=== PATIENT | female | born 1965 | race Two or more races ===

== ENCOUNTER 2022-09-08 13:39 | Outpatient (REF) | payer MEDICAID, OTHER, SELFPAY ==
--- NOTE | ~2022-09-08 | XR_ITS ---
EXAMINATION: XR HAND, RIGHT CLINICAL INFORMATION: Pain in right hand. COMPARISON: None TECHNIQUE: PA, lateral, and oblique views of the right hand. FINDINGS: There is loss of PIP and DIP joint space. No periarticular spurring or loose body seen. There is diffuse osteopenia. The soft tissues are normal. XR/XR hand RT min 3V IMPRESSION: Mild degenerative changes PIP and DIP joints. No visible acute fracture or dislocation seen.
== END 2022-09-08 13:40 | disposition home or self-care (01) ==
LOC: HO.XRAY 13:39
PROVIDERS: PCP Internal Medicine; Visit Provider Internal Medicine
DX: M79.641 Pain in right hand (principal)
CPT/HCPCS: 73130

== ENCOUNTER 2022-09-20 14:26 | Outpatient (REF) | payer MEDICAID, OTHER, SELFPAY ==
--- NOTE | ~2022-09-20 | MM_ITS ---
EXAMINATION: MM SCREENING DIGITAL BREAST TOMOSYNTHESIS, BILATERAL CLINICAL INFORMATION: Screening. Asymptomatic. The lifetime risk of breast cancer based on the Tyrer-Cuzick Model is 9%. COMPARISON: Mammography: 06/10/2015 TECHNIQUE: Digital breast tomosynthesis is performed in both the craniocaudal and mediolateral oblique views along with computer-aided detection (CAD). Synthesized 2D images are generated from the tomosynthesis. FINDINGS: There are scattered areas of fibroglandular density (ACR BI-RADS breast composition Category b). Parenchymal pattern pattern is similar to prior exam. No interval mass or architectural abnormality. No abnormal calcifications. The axilla and skin contours unremarkable. MM/MM tomosynthesis screening BI IMPRESSION: No mammographic evidence of malignancy. ASSESSMENT: BI-RADS 1: Negative RECOMMENDATION: Routine annual mammography screening. This patient's information was entered into a reminder system with a target due date for their next mammogram.
== END 2022-09-20 14:27 | disposition home or self-care (01) ==
LOC: HO.MAMMO 14:26
PROVIDERS: PCP Internal Medicine; Visit Provider Internal Medicine
DX: Z12.31 Encounter for screening mammogram for malignant neoplasm of breast (principal)
CPT/HCPCS: 77063; 77067

== ENCOUNTER 2024-01-10 15:13 | Outpatient (REF) | payer MEDICAID, OTHER, SELFPAY ==
[2024-01-10 15:59] LABS: MANUAL DIFF FLAG NO
[2024-01-10 16:08] LABS: Basophils Percent Auto 0.4 % (0-2); Eosinophils Absolute Auto 0.2 X10*3/uL (0.0-0.4); Hematocrit 36.6 % (37.0-47.0); Hemoglobin 12.3 g/dl (12.0-16.0); Imm Gran Abs Auto 0.02 X10*3/uL (0.00-0.03); Imm Gran Pct Auto 0.3 % (0.0-0.4); Lymphocytes Absolute Auto 3.5 X10*3/uL (1.2-4.9); Lymphocytes Percent Auto 45.6 % (20-40); Mean Corpuscular HGB Conc 33.6 g/dl (31.0-35.0); Mean Corpuscular Hemoglobin 29.6 pg (27.0-33.0); Mean Platelet Volume 9.1 fL (9.4-12.3); Monocytes Absolute Auto 0.5 X10*3/uL (0.1-1.2); Monocytes Percent Auto 6.4 % (2-11); Neutrophils Absolute Auto 3.5 x10*3/uL (2.0-8.3); Neutrophils Percent Auto 45.3 % (45-73); Platelet Count 338 X10*3/uL (160-400); Red Blood Count 4.16 X10*6/uL (4.20-5.50); White Blood Count 7.6 X10*3/uL (4.8-10.8)
[2024-01-10 16:53] LABS: Erythrocyte Sedimentation Rate 16 MM/HR (0-20)
[2024-01-10 17:52] LABS: Alanine Aminotransferase 17 U/L (0-31); Albumin Level 3.8 g/dL (3.5-5.0); Aspartate Amino Transferase 19 U/L (5-31); C Reactive Protein 0.17 mg/dL (< or = 0.50); Estimated Glomerular Filt Rate > 60
== END 2024-01-10 15:14 | disposition home or self-care (01) ==
LOC: HO.HHCL 15:13
PROVIDERS: Visit Provider Internal Medicine Rheumatology
DX: M06.00 Rheumatoid arthritis without rheumatoid factor, unspecified site (principal); Z79.899 Other long term (current) drug therapy
CPT/HCPCS: 36415; 82040; 82565; 84450; 84460; 85025; 85652; 86140

== ENCOUNTER 2024-05-02 15:07 | Outpatient (REF) | payer MEDICAID, OTHER, SELFPAY ==
[2024-05-02 16:01] LABS: MANUAL DIFF FLAG NO
[2024-05-02 16:13] LABS: Basophils Percent Auto 0.5 % (0-2); Eosinophils Absolute Auto 0.2 X10*3/uL (0.0-0.4); Eosinophils Percent Auto 1.8 % (0-4); Hematocrit 38.1 % (37.0-47.0); Hemoglobin 12.6 g/dl (12.0-16.0); Imm Gran Abs Auto 0.01 X10*3/uL (0.00-0.03); Imm Gran Pct Auto 0.1 % (0.0-0.4); Lymphocytes Absolute Auto 3.6 X10*3/uL (1.2-4.9); Mean Corpuscular HGB Conc 33.1 g/dl (31.0-35.0); Mean Corpuscular Hemoglobin 29.3 pg (27.0-33.0); Mean Corpuscular Volume 88.6 fL (80.0-98.0); Mean Platelet Volume 9.2 fL (9.4-12.3); Monocytes Absolute Auto 0.5 X10*3/uL (0.1-1.2); Neutrophils Absolute Auto 3.9 x10*3/uL (2.0-8.3); Neutrophils Percent Auto 47.6 % (45-73); Platelet Count 361 X10*3/uL (160-400); Red Cell Distribution Width 14.6 % (11.0-16.0); White Blood Count 8.1 X10*3/uL (4.8-10.8)
[2024-05-02 16:30] LABS: Alanine Aminotransferase 12 U/L (0-31); Albumin Level 3.9 g/dL (3.5-5.0); Alkaline Phosphatase 78 U/L (39-117); Anion Gap 9 (12-20); Aspartate Amino Transferase 18 U/L (5-31); Bilirubin Direct < 0.2 mg/dL (0.0-0.5); Bilirubin Total 0.2 mg/dL (0.0-1.0); Blood Urea Nitrogen 10 mg/dL (9-16); Calcium 9.9 mg/dL (8.4-10.2); Carbon Dioxide 32 mmol/L (22-29); Chloride 103 mmol/L (96-108); Cholesterol 228 mg/dL (<200); Estimated Glomerular Filt Rate > 60; Glucose Random 88 mg/dL (60-115); HDL Cholesterol 59 mg/dL (>40); LDL Cholesterol Calculated 146 mg/dL (<100); Potassium 3.4 mmol/L (3.3-5.1); Sodium 141 mmol/L (135-145); Total Protein 7.1 g/dL (6.5-8.0); Triglycerides 119 mg/dL (<150)
[2024-05-02 16:35] LABS: Estimated Average Glucose 117 mg/dL; Hemoglobin A1c % 5.7 % (<6.0)
== END 2024-05-02 15:08 | disposition home or self-care (01) ==
LOC: HO.HHCL 15:07
PROVIDERS: Visit Provider Internal Medicine
DX: I10 Essential (primary) hypertension (principal)
CPT/HCPCS: 36415; 80048; 80061; 80076; 83036; 85025

== ENCOUNTER 2025-03-14 17:44 | Emergency (ER) | payer MEDICAID, OTHER, SELFPAY ==
--- NOTE | 2025-03-14 17:54 | ED.GENADULT ---
HPI - General Adult General Chief complaint: Dizziness Stated complaint: high blood pressure/dizzy/vomiting Time Seen by Provider: 03/14/25 18:33 Source: patient and cyber reverse engineer (samoan) Mode of arrival: ambulatory Limitations: language barrier (samoan) History of Present Illness ED Provider: SOBIA DUKE PA-C HPI narrative: 59 year old Citizen [place] speaking female with pmhx significant for lupus, arthritis, and HTN presents to the ED today for evaluation of nausea and dizziness since yesterday. She states dizziness has been intermittent since yesterday. Exacerbated with head movements. She states she cannot describe her dizziness but states she does not feel light headed. She denies any vision changes. She reports initially feeling nauseous yesterday. At that time, she took her blood pressure and states it was 179 over 90s. She reports compliance with her blood pressure medications, amlodipine and hydralazine. She denies any recent changes to these medications. She also reports 3 episodes of vomiting yesterday. No episodes of vomiting today. Denies any associated headache, vision changes, chest pain, shortness of breath or palpitations. She is not on any anticoagulation. No VTE. Denies any difficulty ambulating. Related Data Previous Rx's ?Medication ?Instructions ?Recorded meclizine 25 mg tablet 25 mg PO BID PRN dizziness #20 tabs 03/14/25 Allergies Allergy/AdvReac Type Severity Reaction Status Date / Time Penicillins Allergy Mild UNKNOWN Verified 03/14/25 17:57 Review of Systems Review of Systems: Yes all other systems are reviewed and are negative PMFSH Past Medical History Attestation statement: The following information was validated with the patient. Source: old records reviewed and nursing notes reviewed Social History Social History Alcohol intake: never Smoked in Last 30 Days: No Use of substances other than those prescribed or required for medical reasons: No Advance Directives: No Advance Directives Information Provided: No Do you have a plan to hurt others: No Plan Patient : No Physical Exam ED Vital Signs: Vital Signs - 24 hr 03/14/25 17:57 03/14/25 19:13 03/14/25 19:14 Temperature 98.1 F Pulse Rate 85 66 76 Respiratory Rate 16 Blood Pressure 123/73 136/72 118/77 Pulse Oximetry 95 Oxygen Delivery Method Room Air 03/14/25 19:14 03/14/25 20:06 Temperature Pulse Rate 75 75 Respiratory Rate 18 Blood Pressure 124/77 124/77 Pulse Oximetry 95 Oxygen Delivery Method Room Air BMI result Body Mass Index 27.7 vital signs stable General: Well appearing, in no acute distress. Skin: Warm, dry, intact. No rashes or lesions. Head: Normocephalic, atraumatic. EENT: Hearing is intact b/l. Conjunctiva clear. Sclera is anicteric. PERRLA. EOM intact. Moist mucous membranes.? Neck: Supple without LAD. FROM. Trachea midline.? Cardiac: Chest wall symmetric. RRR. No MRG. No JVD. Lungs: Normal respiratory effort without accessory muscle use. CTA bilaterally Abdomen: Soft, non-tender, non-distended. No rebound tenderness or guarding. Positive BS x4. Ext: Upper and lower extremities atraumatic, without tenderness, deformity, swelling or erythema Neuro: AOx3. Normal speech. NIH 0. Mild fatigable nystagmus. No slurred speech, facial droop or pronator drift. Normal [id number], [id number]. Ambulating with steady gait. Psych: Appropriate mood and affect. Responds appropriately to questions. Course Course Course Narrative: This is an RME: Additional HPI, ROS, PE not included below will be deferred to primary provider. RME assessment and note performed by: Vicky León PA-C This is a 59-year-old samoan speaking female, with a hx of lupus, arthritis, and HTN, who presents emergency department with concerns for dizziness and vomiting. Reports dizziness occurs with speaking. She is neurologically intact, no focal deficits seen in triage. Reports her BP was elevated at 179/90s yesterday. Current BP in triage 123/73. She is not on anticoagulants. Plan: Labs, EKG, viral swabs, further ER eval needed. Reevaluation(s) Reevaluation #1: 1949 -- CBC without leukocytosis or left shift. No anemia. H&H stable. Chemistry showing hypokalemia to 3.1, magnesium WNL at 2.1. EKG shows normal sinus rhythm. No T-wave abnormalities. P.o. supplementation ordered. No MADELYN. Liver function at baseline. Troponin undetectable. Given onset of symptoms and timing to ED, no need to repeat for delta. Negative COVID, flu, RSV. Urinalysis pending. Orthostatic vital signs are negative. > trialing IV fluids and meclizine. Plan for re-evaluation. Imaging not warranted at this time. 2036 -- urine without infection. On re-evaluation of patient, she reports significant improvement in symptoms after receiving meclizine and IV fluids. She was well-appearing. States she would like to go home, she was hungry. I discussed all workup results with patient. I have suspicion for vertigo type dizziness. Her exam is completely nonfocal and cerebellum is intact. I do not have concern for cerebellar stroke at this time and do not feel as though imaging is warranted. Will send meclizine to pharmacy to take on an as-needed basis for dizziness. Advised to monitor blood pressure at home and to follow up with her primary care provider regarding this. Her blood pressure has remained stable while in the ED. ambulating with steady gait. She was tolerating p.o.. Patient has remained stable throughout ED visit today. Discussed worrisome signs and symptoms and when to return to the ED. All questions answered at this time. Patient is agreeable with disposition and stable for discharge. Medications Administered Discontinued Medications Generic Name Dose Route Start Last Admin Trade Name Freq PRN Reason Stop Dose Admin Sodium Chloride 1,000 mls @ 999 mls/hr 03/14/25 19:15 03/14/25 19:29 Ns IV 03/14/25 20:15 999 mls/hr .Q1H1M KATY Administration Meclizine HCl 25 mg 03/14/25 19:06 03/14/25 19:20 Meclizine Hcl 25 Mg Tablet PO 03/14/25 19:07 25 mg ONCE ONE Administration Potassium Chloride 40 meq 03/14/25 19:08 03/14/25 19:19 Potassium Chloride Packet 20 Meq Packet PO 03/14/25 19:09 40 meq ONCE ONE Administration Medical Decision Making Medical Decision Making MDM Narrative: 59 year old Citizen [place] speaking female with pmhx significant for lupus, arthritis, and HTN presents to the ED today for evaluation of nausea and dizziness since yesterday. Vital signs stable. BP WNL. She is nontoxic appearing in no acute distress. Ambulating with slow but steady gait. Exam nonfocal, cerebellum intact. Noted fatigable nystagmus. Differential diagnoses includes: viral syndrome, anemia, electrolyte abnormality, hypoglycemia, orthostatic hypotension, dehydration, medication side effect, BPPV vs labrynthitis. No red flag features for central vertigo to include gradual onset, vertical/bidirectional or nonfatigable nystagmus, focal neurologic findings on exam (including inability to ambulate). Presentation not consistent with an acute CONTACT LENS TECHNICIAN infection, vertebral basilar artery insufficiency, cerebellar hemorrhage or infarction,?intracranial mass or bleed, temporal lobe epilepsy,?MS, trauma, complex migraine headache. I have also considered ACS, arrhythmi, UTI. Plan: labs, ekg, viral swabs, UA, ortho vitals, trial of IVF +meclizine, supportive care, serial reassessment Differential Diagnosis Differential Diagnoses: The differential diagnosis associated with the presentation includes as above. Admission/Observation not indicated. Lab Data MDM Lab Attestation statement: I reviewed the patient's lab results. as above. 03/14/25 18:21 03/14/25 18:21 Labs: Lab Results 03/14/25 03/14/25 Range/Units 18:21 20:03 WBC 8.6 (4.8-10.8) X10*3/uL RBC 4.21 (4.20-5.50) X10*6/uL Hgb 12.6 (12.0-16.0) g/dl Hct 36.5 L (37.0-47.0) % MCV 86.7 (80.0-98.0) fL MCH 29.9 (27.0-33.0) pg MCHC 34.5 (31.0-35.0) g/dl RDW 14.0 (11.0-16.0) % Plt Count 312 (160-400) X10*3/uL MPV 8.7 L (9.4-12.3) fL Immature Gran % (Auto) 0.1 (0.0-0.4) % Neut % (Auto) 54.1 (45-73) % Lymph % (Auto) 38.4 (20-40) % [place] % (Auto) 6.5 (2-11) % Eos % (Auto) 0.6 (0-4) % Baso % (Auto) 0.3 (0-2) % Lymph # (Auto) 3.3 (1.2-4.9) X10*3/uL [place] # (Auto) 0.6 (0.1-1.2) X10*3/uL Eos # (Auto) 0.1 (0.0-0.4) X10*3/uL Baso # (Auto) 0.0 (0.0-0.2) X10*3/uL Abs Immat Gran (auto) 0.01 (0.00-0.03) X10*3/uL Absolute Neuts (auto) 4.7 (2.0-8.3) x10*3/uL Absolute Nucleated RBC 0.000 (0.0-0.012) X10*3/uL Nucleated RBC % (auto) 0.0 (0.0-0.2) /100WBC Sodium 138 (135-145) mmol/L Potassium 3.1 L (3.3-5.1) mmol/L Chloride 103 (96-108) mmol/L Carbon Dioxide 26 (22-29) mmol/L Anion Gap 12 (12-20) BUN 18 H (9-16) mg/dL Creatinine 0.66 (0.5-1.4) mg/dL Estim Creat Clear Calc 82.3 Estimated GFR > 60 Random Glucose 95 (60-115) mg/dL Calcium 9.1 D (8.4-10.2) mg/dL Magnesium 2.1 (1.6-2.6) mg/dL Total Bilirubin 0.4 (0.0-1.0) mg/dL Direct Bilirubin 0.1 (0.0-0.5) mg/dL AST 24 (5-31) U/L ALT 14 (0-31) U/L Alkaline Phosphatase 61 (39-117) U/L Troponin I High Sens < 2.7 (<3.5-17.0) ng/L Total Protein 6.5 (6.5-8.0) g/dL Albumin 3.7 (3.5-5.0) g/dL Urine Color Yellow Urine Appearance Clear Urine pH 6.5 (5.0-9.0) Ur Specific [place] 1.010 (1.005-1.025) Urine Protein Negative (Neg-Trace) mg/dL Urine Glucose (UA) Negative (Negative) mg/dL Urine Ketones Negative (Negative) mg/dL Urine Blood Negative (Negative) Urine Nitrite Negative (Negative) Ur Leukocyte Esterase Small (1+) H (Negative) Urine RBC 0-2 (0-2) /HPF Urine WBC 0-5 (0-5) /HPF Ur Squamous Epith Cells 0-2 (0-2) /HPF Urine Bacteria None Seen (None Seen) Hyaline Casts 0-2 (0-2) /LPF Influenza Type A (PCR) NEGATIVE (Negative) Influenza Type B (PCR) NEGATIVE (Negative) RSV RNA Qual (PCR) NEGATIVE (Negative) SARS-CoV-2 RNA (RT-PCR) NEGATIVE (Negative) Independent Interpretation I performed an independent interpretation of an: EKG Interpretation: EKG showing normal sinus rhythm, rate of 68 beats per minute, QT 410, QTC 435, no acute ischemic changes or ST elevations Prescription Management I considered prescription management with: Other (Meclizine) Social Determinants Patient?s care significantly limited by Social Determinants of Health including: Other Social Determinant of Health Critical Care Time Critical Care Time Critical Care Time: No Discharge Plan Discharge Clinical Impression: Dizziness Patient Disposition: Home, Self-Care Instructions: Vertigo (ED), Dizziness (ED) Additional Instructions: You were evaluated in the ED today for nausea and dizziness. Your blood work showed low level of potassium. This was repleted while in the ED today. Your blood work was otherwise reassuring. You were blood pressure is normal. Your EKG is normal. Your symptoms improved with medication (meclizine) and IV fluids. Your exam is reassuring. I have suspicion that you are experiencing vertigo. See home care instructions. I am sending meclizine to your pharmacy. You may take this 2-3 times daily as needed for dizziness. I advise you to follow up with your primary care provider. Continue monitoring your blood pressure at home, every other day. Return with any new or worsening symptoms. In the case of an emergency call 911. Prescriptions: New meclizine 25 mg tablet 25 mg PO BID PRN (Reason: dizziness) Qty: 20 0RF Referrals: Constanza Barahona MD [Primary Care Provider] - Print Language: Citizen [place]
[2025-03-14 17:57] VITALS: BP 123/73; PULSE 85; RESP 16; TEMP 36.7; O2SAT 95; BMI 27.7
--- NOTE | 2025-03-14 18:07 | ECG_ITS ---
Test Reason : DIZZINESS Blood Pressure : */* mmHG Vent. Rate : 68 BPM Atrial Rate : 68 BPM P-R Int : 160 ms QRS Dur : 92 ms QT Int : 410 ms P-R-T Axes : 49 -2 41 degrees QTcB Int : 435 ms Normal sinus rhythm Normal ECG When compared with ECG of 22-Apr-2018 12:21, No significant change was found Referred By: Vicky León Electronically Signed By: SCOTTY MENENDEZ MD
[2025-03-14 18:25] LABS: MANUAL DIFF FLAG NO
[2025-03-14 18:26] LABS: Basophils Percent Auto 0.3 % (0-2); Eosinophils Absolute Auto 0.1 X10*3/uL (0.0-0.4); Eosinophils Percent Auto 0.6 % (0-4); Hematocrit 36.5 % (37.0-47.0); Hemoglobin 12.6 g/dl (12.0-16.0); Imm Gran Abs Auto 0.01 X10*3/uL (0.00-0.03); Imm Gran Pct Auto 0.1 % (0.0-0.4); Lymphocytes Absolute Auto 3.3 X10*3/uL (1.2-4.9); Lymphocytes Percent Auto 38.4 % (20-40); Mean Corpuscular HGB Conc 34.5 g/dl (31.0-35.0); Mean Corpuscular Hemoglobin 29.9 pg (27.0-33.0); Mean Corpuscular Volume 86.7 fL (80.0-98.0); Mean Platelet Volume 8.7 fL (9.4-12.3); Monocytes Absolute Auto 0.6 X10*3/uL (0.1-1.2); Monocytes Percent Auto 6.5 % (2-11); Neutrophils Absolute Auto 4.7 x10*3/uL (2.0-8.3); Neutrophils Percent Auto 54.1 % (45-73); Platelet Count 312 X10*3/uL (160-400); Red Blood Count 4.21 X10*6/uL (4.20-5.50); White Blood Count 8.6 X10*3/uL (4.8-10.8)
--- OUTSIDE RECORDS SUMMARY | 2025-03-14 18:36 | XMS_ITS | Clinical Summary ---
Author Organization [facility] Address [address] [place] [address] Care Team Providers Care Cooking Teacher Name Role Phone Constanza Barahona MD Primary Care Provider Allergies No known active allergies Medications amLODIPine (NORVASC) 10 mg tablet 10 mg. Active acetaminophen (TYLENOL) 500 mg tablet Take 500 mg by mouth every 6 hours as needed for pain. Active omeprazole (PriLOSEC) 20 mg capsule Take 20 mg by mouth daily. Active aspirin 81 mg EC tablet Take 81 mg by mouth once a day. 08/31/2022 Active ibuprofen (MOTRIN) 600 mg tablet Take 600 mg by mouth 2 times a day. 08/31/2022 Active Active Problems Problem Noted Date Diagnosed Date Long-term use of Plaquenil 06/06/2021 Age-related nuclear cataract of both eyes 2020 Refractive error 06/06/2021 H/O pain when walking 02/21/2016 Bunion, left 02/21/2016 GERD (gastroesophageal reflux disease) 5 Chronic idiopathic constipation 10/28/2015 Overweight (BMI 25.0-29.9) 10/28/2015 Acquired hallux rigidus of right foot 10/28/2015 Bilateral foot pain 05/18/2015 Resolved Problems Problem Noted Date Diagnosed Date Resolved Date Presence of retained hardware 07/14/2020 04/19/2021 Overview (07/14/2020): Added automatically from request for surgery [id number] Encounters Date Type Department Care Team Description 02/27/2025 1:00 PM EDT Telehealth [facility] [address] [place] [address] City Driver: Destiny Chung MD Arthralgia of multiple joints (Primary Dx); Bilateral hand pain from Last 3 Months Family History Medical History Relation Name Comments Cancer Father Other Father Family history of No pertinent family history Diabetes Mother Heart disease Mother Hypertension Mother Other Mother Family history of No pertinent family history Other Other Grandparent Fam hitesh history of Throat cancer Relation Name Status Comments Father Mother Alive Other Social History Tobacco Use Types Packs/Day Years Used Date Smoking Tobacco: Never Passive Smoke Exposure: Never Smokeless Tobacco: Never Tobacco Cessation:Counseling Given: Not Answered Comments:tried once in 2004 Alcohol Use Standard Drinks/Week Comments Yes 0 (1 standard drink = 0.6 oz pur e alcohol) beer, rare use Comments No Sex and Gender Information Value Date Recorded Sex Assigned at Not on file Legal Sex Female 6:14 AM EDT Gender Identity Not on file Sexual Orientation Not on file Last Filed Vital Signs Vital Sign Reading Time Taken Comments Blood Pressure 161/88 02/13/2024 1:29 PM EDT Pulse 71 02/13/2024 1:29 PM EDT Temperature 36.7 ??C (98 ??F) 02/13/2024 1:2 9 PM EDT Respiratory Rate 16 04/19/2021 3:49 PM EDT resting. Ride recalled ETA 20minutes. Oxygen Saturation 100% 04/19/2021 12: 54 PM EDT Inhaled Oxygen Concentration - - Weight 71.2 kg (157 lb) 02/13/2024 1:29 PM EDT Height 157.5 cm (5' 2 ) 02/13/2024 1:29 PM EDT Body Mass Index 28.72 02/13/2024 1:29 PM EDT Plan of Treatment Health Maintenance Due Date Last Done Comments Cervical Cancer Screening 1965 Cologuard 1965 HIV Screening 1965 HPV and Pap Smear 1965 Hepatitis C Screening 1965 Pap Smear 1965 Sigmoidoscopy 1965 Pneumococcal Vaccine: 50+ Years (1 of 2 - PCV) 1983 DTaP,Tdap,and Td Vaccines (1 - Tdap) 01/09/2009 01/08/2009 Zoster Vaccines (1 of 2) 2014 Basic Metabolic Panel 09/13/2023 09/13/2022 , 04/16/2021, 08/18/2016, Additional history exists COVID-19 Vaccine (1 - season) 2024 Mammogram 09/20/2024 09/20/2022 RSV Vaccine (60+ years old and patients) (1 - Risk 60-74 years 1-dose series) 2024 Alcohol/Substance Use Screening 11/26/2024 Depression Screening and Follow-Up 11/26/2024 Social Drivers of Health Annual Screening 11/26/2024 FOBT / Fit Test 05/02/2025 05/02/2024 Influenza Vaccine (Season Ended) 2025 10/04/2016, 09/03/2015, 10/09/2014, Additional history exists Colon Cancer Screening 11/30/2025 Colonoscopy 11/30/2025 11/30/2015 Hepatitis B Vaccines Aged Out No long er eligible based on patient's age to complete this topic Procedures * Due to [place] [employer] law, this organization might not be sharing negative HIV tests. Procedure Name Priority Date/Time Associated Diagnosis Comments COMPREHENSIVE METABOLIC PANEL Routine 09/13/2022 4:05 PM EDT Seronegative rheumatoid arthritis Long-term use of Plaquenil Bilateral hand pain COLONOSCOPY 11/30/2015 2:32 PM EST from Last 3 Months or Most Recently Relevant to Health Maintenance Results * Due to [place] [employer] law, this organization might not be sharing negative HIV tests. * (ABNORMAL) Comprehensive metabolic panel (09/13/2022 4:05 PM EDT) NA 140 135 - 145 mmol/L 09/13/2022 5:24 PM EDT [facility] K 3.4(L) 3.5 - 5.3 mmol/L 09/13/2022 5:24 PM EDT [facility] Cl 103 97 - 110 mmol/L 09/13/2022 5:24 PM EDT [facility] CO2 30 24 - 32 mmol/L 09/13/2022 5:24 PM EDT [facility] Anion Gap 7 5 - 15 09/13/2022 5:24 PM EDT [facility] Glucose 87 70 - 99 mg/dL 09/13/2022 5:24 PM EDT [facility] Creatinine 0.63 0.50 - 1.20 mg/dL 09/13/2022 5:24 PM EDT [facility] Calcium 9.3 8.7 - 10.7 mg/dL 09/13/2022 5:24 PM EDT [facility] Total Protein 6.9 6.0 - 8.0 g/dL 09/13/2022 5:24 PM T [facility] Albumin 3.9 3.5 - 4.8 g/dL 09/13/2022 5:24 PM EDT [facility] Bilirubin, Total 0.2(L) 0.3 - 1.2 mg/dL 09/13/2022 5:24 PM EDT [facility] Alkaline Phosphatase 77 30 - 115 U/L 09/13/2022 5:24 PM T [facility] AST 16 10 - 40 U/L 09/13/2022 5:24 PM EDT [facility] ALT 11 10 - 40 U/L 09/13/2022 5:24 PM EDT [facility] BUN 13 7 - 23 mg/dL 09/13/2022 5:24 PM EDT [facility] eGFR >90 >=90 mL/min/1. 73m2 09/13/2022 5:24 PM EDT [facility] Comment: Estimated Glomerular Filtration Rate (GFR) calculated using the CKD-EPI refit equation. The different stages of CKD form a continuum. The stages of CKD are classified as follows : Stage 1: Kidney damage with normal or increased GFR (>90 mL/min/1.73 m2) Stage 2: Mild reduction in GFR (60-89 mL/min/1.73 m2) Stage 3a: Moderate reduction in GFR (45-59 mL/min/1.73 m2) Stage 3b: Moderate reduction in GFR (30-44 mL/min/1.73 m2) Stage 4: Severe reduction in GFR (15-29 mL/min/1.73 m2) Stage 5: Kidney failure (GFR < 15 mL/min/1.73 m2 or dialysis) Blood Structure of peripheral vein / Unknown Venipuncture / Unknown 09/13/2022 4:05 PM EDT 09/13/2022 4:45 PM EDT us Dsetiny Brooks MD LAB BLOOD ORDERABLES Final Resul t Performing Organization Address City/State/[facility] Co de Phone Number [facility] [address] [place] [address], * COLONOSCOPY (11/30/2015 2:32 PM EST) Narrative Procedure Note Yazmin Vincent - 11/30/2015 2:32 PM EST Patient Name: Nicki Mari Procedure Date: 11/30/2015 2:32 PM Date of : 1965 Admit Type: Outpatient Age: 50 Room: Room 5 Gender: Female Note Status: Finalized Attending MD: Yazmin Vincent MD Procedure: Colonoscopy Indications: Screening for colorectal malignant neoplasm Comorbidities Providers: Yazmin Vincent MD, Kristan Mahajan MD (Fellow) Referring MD: Maik Razo (Referring MD), Usha Boateng (Referring MD),Jose E Gandhi MD (Referring MD) Requesting Provider: Medicines: Midazolam 1 mg IV, Patient previously medicated forEGD. Complications: No immediate complications. Estimated Blood Loss: Estimated blood loss: none. Procedure: Pre-Anesthesia Assessment: - Prior to the procedure, a History and Physical was performed, and patient medications and allergies were reviewed. The patient is competent. The risks andbenefits of the procedure and the sedation options and riskswere discussed with the patient. All questions were answered and informed consent was obtained. Patientidentification and proposed procedure were verified by the physician,the nurse and the instrument technician apprentice in the procedure room. Mental Status Examination: alert and oriented. Airway Examination: normal oropharyngeal airway and neck mobility. Respiratory Examination: clear toauscultation. CV Examination: normal. Prophylactic Antibiotics: The patient does not require prophylactic antibiotics.Prior Anticoagulants: The patient has taken aspirin, lastdose was 1 day prior to procedure. ASA Grade Assessment: II- A patient with mild systemic disease. After reviewing the risks and benefits, the patient was deemed insatisfactory condition to undergo the procedure. The anesthesia plan was to use moderate sedation / analgesia (conscious sedation). Immediately prior to administration of medications, the patient was re-assessed for adequacyto receive sedatives. The heart rate, respiratory rate, oxygen saturations, blood pressure, adequacy ofpulmonary ventilation, and response to care were monitored throughout the procedure. The physical status of the patient was re-assessed after the procedure. After I obtained informed consent, the scope was passed under direct vision. Throughout the procedure, the patient's blood pressure, pulse, and oxygen saturations were monitored continuously. The Colonoscope was introduced through the anus and advanced to the cecum, identified by appendiceal orifice and ileocecal valve.The colonoscopy was performed without difficulty. Thepatient tolerated the procedure well. The quality of the bowel preparation was excellent. The bowel preparation usedwas Co[employer]te. Findings: The perianal and digital rectal examinations were normal. The colon (entire examined portion) appeared normal. Internal hemorrhoids were found during retroflexion. No additional abnormalities were found on retroflexion. Impression: - The entire examined colon is normal. - Internal hemorrhoids. - No specimens collected. Recommendation: - Discharge patient to home. - Return to referring physician as previouslyscheduled. - Repeat colonoscopy in 10 years for screeningpurposes. Attending Participation: I was present and participated during the entire procedure, including non-goel portions. Yazmin Vincent MD 11/30/2015 3:18:11 PM This report has been signed electronically. Number of Addenda: 0 Note Initiated On: 11/30/2015 2:32 PM Yazmin Vincent PROVATION PROCEDURES Final Result from Last 3 Months or Most Recently Relevant to Health Maintenance Insurance [facility]/FREE CARE Advance Directives Documents on File Type Date Recorded Patient Paid Search Analyst Expl bet[facility] Health Care Proxy 04/19/2021 6:27 AM * Full Code (Latest Code Status on File) Date Activated Date Inactivated Comments 04/19/2021 5:44 AM 04/19/2021 6:15 PM Healthcare Agents on File Name Relationship Healthcare Agent Relationship Communication Arash Gregory [facility] Health Care Agent Care Teams Cooking Teacher Relationship Specialty Start Date End Date Constanza Barahona MD [address] [place] [id number] PCP - General 03/04/19
--- OUTSIDE RECORDS SUMMARY | 2025-03-14 18:37 | XMS_ITS | Referral Summary ---
Author Organization [facility] Address [address] [place] [address] Care Team Providers Care Ampoule Filler Name Role Phone Constanza Barahona MD Primary Care Provider Encounters Date Type Department Care Team Description 02/27/2025 1:00 PM EDT Telehealth [facility] [address] [place] [address] Chemical Cell Changer: Destiny Chung MD Arthralgia of multiple joints (Primary Dx); Bilateral hand pain from Last 3 Months Allergies No known active allergies Medications amLODIPine [...] (07/14/2020): Added automatically from request for surgery [id number] Social History Tobacco Use Types Packs/Day Years [...] 02/13/2024 1:29 PM EDT Plan of Treatment Not on file Procedures * Due to [place] [employer] law, this organization might not be sharing negative HIV tests. Procedure Name Priority Date/Time Associated Diagnosis Comments COMPREHENSIVE METABOLIC PANEL Routine 09/13/2022 4:05 PM EDT Seronegative rheumatoid arthritis Long-term use of Plaquenil Bilateral hand pain COLONOSCOPY 11/30/2015 2:32 PM EST from Last 3 Months or Most Recently Relevant to Health Maintenance Results * Due to [place] [employer] law, this organization might not be sharing negative HIV tests. * (ABNORMAL) Comprehensive metabolic panel (09/13/2022 4:05 PM EDT) NA 140 135 - 145 mmol/L 09/13/2022 5:24 PM EDT [facility] K 3.4(L) 3.5 - 5.3 mmol/L 09/13/2022 5:24 PM EDT [facility] Cl 103 97 - 110 mmol/L 09/13/2022 5:24 PM EDT [facility] CO2 30 24 - 32 mmol/L 09/13/2022 5:24 PM EDT [facility] Anion Gap 7 5 - 15 09/13/2022 5:24 PM EDT [facility] Glucose 87 70 - 99 mg/dL 09/13/2022 5:24 PM EDT [facility] Creatinine 0.63 0.50 - 1.20 mg/dL 09/13/2022 5:24 PM EDT [facility] Calcium 9.3 8.7 - 10.7 mg/dL 09/13/2022 5:24 PM EDT [facility] Total Protein 6.9 6.0 - 8.0 g/dL 09/13/2022 5:24 PM EDT [facility] Albumin 3.9 3.5 - 4.8 g/dL 09/13/2022 5:24 PM EDT [facility] Bilirubin, Total 0.2(L) 0.3 - 1.2 mg/dL 09/13/2022 5:24 PM EDT [facility] Alkaline Phosphatase 77 30 - 115 U/L 09/13/2022 5:24 PM EDT [facility] AST 16 10 - 40 U/L 09/13/2022 5:24 PM EDT [facility] ALT 11 10 - 40 U/L 09/13/2022 5:24 PM EDT [facility] BUN 13 7 - 23 mg/dL 09/13/2022 5:24 PM EDT [facility] eGFR >90 >=90 mL/min/1. 73m2 09/13/2022 5:24 PM EDT [facility] Comment: Estimated Glomerular Filtration [...] PM EDT 09/13/2022 4:45 PM EDT us Destiny Brooks MD LAB BLOOD ORDERABLES Final Resul t [facility] [address] [place] [address], [place] * COLONOSCOPY (11/30/2015 2:32 PM EST) Narrative Procedure Note Yazmin Vincent - 11/30/2015 2:32 PM EST Patient Name: Nicki Carlyasir Procedure Date: 11/30/2015 2:32 PM Date of [...] verified by the physician,the nurse and the geotechnical laboratory technician in the procedure room. Mental Status Examination: [...] Most Recently Relevant to Health Maintenance Insurance [employer] [facility]/FREE CARE Advance Directives Documents on File Type Date Recorded Patient Stamp Pad Maker Expl [facility] Health Care Proxy 04/19/2021 6:27 AM * Full Code (Latest Code Status on File) Date Activated Date Inactivated Comments 04/19/2021 5:44 AM 04/19/2021 6:15 PM Healthcare Agents on File Name Relationship Healthcare Agent Relationship Communication Arash Gregory [facility] Health Care Agent Care Teams Ampoule Filler Relationship Specialty Start Date End Date Constanza Barahona MD [address] [place] [id number] PCP - General 03/04/19
[2025-03-14 18:43] LABS: Alanine Aminotransferase 14 U/L (0-31); Albumin Level 3.7 g/dL (3.5-5.0); Alkaline Phosphatase 61 U/L (39-117); Anion Gap 12 (12-20); Aspartate Amino Transferase 24 U/L (5-31); Bilirubin Direct 0.1 mg/dL (0.0-0.5); Bilirubin Total 0.4 mg/dL (0.0-1.0); Blood Urea Nitrogen 18 mg/dL (9-16); Calcium 9.1 mg/dL (8.4-10.2); Carbon Dioxide 26 mmol/L (22-29); Chloride 103 mmol/L (96-108); Creatinine Clr Calc Pharmacy 82.3; Estimated Glomerular Filt Rate > 60; Glucose Random 95 mg/dL (60-115); Magnesium 2.1 mg/dL (1.6-2.6); Potassium 3.1 mmol/L (3.3-5.1); Sodium 138 mmol/L (135-145); Total Protein 6.5 g/dL (6.5-8.0)
[2025-03-14 18:49] LABS: Troponin-I High Sensitivity < 2.7 ng/L (<3.5-17.0)
[2025-03-14 19:05] LABS: Influenza A PCR NEGATIVE (Negative); Influenza B PCR NEGATIVE (Negative); Resp Syncy Virus RNA Qual PCR NEGATIVE (Negative); SARS COV2 PCR INHOUSE NEGATIVE (Negative)
[2025-03-14 19:13] VITALS: BP 136/72; PULSE 66
[2025-03-14 19:14] VITALS: BP 118/77; BP 124/77; PULSE 75; PULSE 76
[2025-03-14] MEDS: Potassium Chloride Packet 20 MEQ PACKET 40 MEQ PO (19:19)
[2025-03-14] MEDS: Meclizine HCl 25 MG TABLET PO (19:20)
[2025-03-14] MEDS: 0.9 % Sodium Chloride 1,000 ML 999 ML IV (19:29)
[2025-03-14 20:06] VITALS: BP 124/77; PULSE 75; RESP 18; O2SAT 95
[2025-03-14 20:09] LABS: Appearance Urine Clear; Color Urine Yellow; Glucose Urine UA Negative (Negative); Leukocyte Esterase Urine Small (1+) (Negative); Nitrite Urine Negative (Negative); PH 6.5 (5.0-9.0); UMIC TRIGGER UACC YES; Urine Blood Negative (Negative); Urine Ketones Negative (Negative); Urine Protein Negative (Neg-Trace)
[2025-03-14 20:21] LABS: Bacteria Urine None Seen (None Seen); Hyaline Casts Urine 0-2 /LPF (0-2); RBC Urine 0-2 /HPF (0-2); Squamous Epithelial Cell Urine 0-2 /HPF (0-2); UACC Culture Trigger YES; WBC Urine 0-5 /HPF (0-5)
[2025-03-14 20:47] VITALS: BP 124/77; PULSE 76; RESP 18; TEMP 36.6; O2SAT 95
== END 2025-03-14 20:49 | disposition home or self-care (01) ==
PROVIDERS: Physician Assistant Medical; Emergency Provider Internal Medicine; PCP Internal Medicine
DX: R42 Dizziness and giddiness (principal); M32.9 Systemic lupus erythematosus, unspecified; I10 Essential (primary) hypertension; R11.0 Nausea; Z03.818 Encounter for observation for suspected exposure to other biological agents ruled out
CPT/HCPCS: 0241U; 80048; 80076; 81001; 83735; 84484; 85025; 87086; 93005; 96360; 99284; 99285

== ENCOUNTER → 2025-03-14 18:07 | Outpatient (BNV) | payer MEDICAID, SELFPAY | PROVIDERS: Emergency Provider Internal Medicine; PCP Internal Medicine; Visit Provider Internal Medicine Cardiovascular Disease | DX: R42 Dizziness and giddiness (principal) | CPT/HCPCS: 93010 ==

== ENCOUNTER 2025-04-14 10:38 | Outpatient (REF) | payer MEDICAID, OTHER, SELFPAY ==
[2025-04-14 11:42] LABS: MANUAL DIFF FLAG NO
--- OUTSIDE RECORDS SUMMARY | 2025-04-14 11:54 | XMS_ITS | Encounter Summary ---
Author Organization [employer] Address [address] [place] [address] [address] [place] [address] Care Team Providers Care Medical Esthetician Name Role Phone Constanza Barahona MD Primary Care Provide r Encounter Details Date Type Department Care Team (Late st Contact Info) Description 10/26/2023 Orders Only [facility] & PEDS [address] [place], [place] [phone] Sally Chang LPN Social History Tobacco Use Types Packs/Day Years Used Date Smoking Tobacco: Never Assessed Comments Unknown Sex and Gender Information Value Date Recorded Sex Assigned at Female 09/25/2022 10:19 AM EDT Legal Sex Female 10:19 AM EDT Gender Identity Choose not to disclose 10:19 AM EDT Sexual Orientation Straight 09/25/2022 10 :19 AM EDT documented as of this encounter Plan of Treatment Upcoming Encounters Date Type Department Care Team (Late st Contact Info) Description 06/22/2025 2:45 PM EDT Procedure Visit [facility] MEDICINE [address] [place] [address] Constanza Barahona MD [address] [place] [address] 06/23/2025 8:00 AM EDT Office Visit [facility] ADULT DENTAL [address] [place] [address] Nidia Otoole [address] [place] [address] documented as of this encounter Visit Diagnoses Not on filedocumented in this encounter Care Teams Medical Esthetician Relationship Specialty Start Date End Date Constanza Barahona MD [address] [place] [address] PCP - General Family Medicine 08/07/18 documented as of this encounter
--- OUTSIDE RECORDS SUMMARY | 2025-04-14 11:54 | XMS_ITS | Encounter Summary ---
Author Organization [employer] Address [address] [place] [address] 7[address] [place] [address] Care Team Providers Care Field Technical Assistant Name Role Phone Constanza Barahona MD Primary Care Provide r Reason for Referral * Consultation (Routine) - Authorized Specialty Diagnoses / Procedures Referred By Delma t Referred To Contact Optometry Diagnoses Primary hypertension SLE (systemic lupus erythematosus related syndrome) ([facility]/HCC) Constanza Barahona MD [address] [place] [address] Phone: tel: fax: [facility] OPTOMETRY [address] [place] [address] Phone: tel: fax: Referral ID Status Reason Start Date Expiration Date Visits Requested Visits Authorized [id number] Authorized Consult and Treat 04/14/2025 04/14/2026 1 1 * Imaging (Routine) - Authorized Specialty Diagnoses / Procedures Referred By Contac t Referred To Contact Radiology Diagnoses Encounter for screening mammogram for malignant neoplasm of breast Procedures BI Mammogram Screening Tomosynthesis Bilateral Constanza Barahona MD [address] [place] [address] Phone: tel: fax: [facility] [address] [place], [place] Phone: tel: fax: Referral ID Status Reason Start Date Expiration Date V isits Requested Visits Authorized [id number] Authorized 04/14/2025 04/14/2026 1 1 * Consultation (Routine) - Pending Review Specialty Diagnoses / Procedures Referred By Conttom t Referred To Contact Otolaryngology Diagnoses Benign paroxysmal vertigo of both ears Constanza Barahona MD [address] [place] [address] Phone: tel: fax: Referral ID Status Reason Start Date Expiration Date Visits Requested Visits Authorized [id number] Pending Review Specialty Services Required 04/14/2025 04/14/2026 1 1 Encounter Details Date Type Department Care Team (Latest Contact Info) Description 04/14/2025 9:30 AM EDT Office Visit [facility] MEDICINE [address] [place] [phone] Constanza Barahona MD [address] [place] [phone] SLE (systemic lupus erythematosus related syndrome) ([facility]/HCC) (Primary Dx); Primary hypertension; Benign paroxysmal vertigo of both ears; Hypokalemia; Encounter for screening mammogram for malignant neoplasm of breast; Encounter for preventive care; Prediabetes; Polyarthralgia; Encounter for immunization Social History Tobacco Use Types Packs/Day Years Used Date Smoking Tobacco: Never Passive Smoke Exposure: Never Smokeless Tobacco: Never Alcohol Use Standard Drinks/Week Comments Never 0 (1 standard drink = 0.6 oz pur e alcohol) Depression Answer Date Recorded Patient Health Questionnaire-9 Score 0 04/14/2025 Patient Health Questionnaire-9 Score 0 04/14/2025 Last PHQ-9: Questionnaire Data Not on file 0 04/14/2025 Housing Stability Answer Date Recorded What is your housing situation today? I have greg liu 04/24/[address] you li ve. Do you have problems with any of the following? None of the above 04/24/2024 Food Insecurity Answer Date Recorded Within the past 12 months, y ou worried that your food would run out before you got money to buy more: Never True 01/17/2024 Within the past 12 months,th e food you bought just didn't last and you didn't have enough money to get more: Never True Transportation Answer Date Recorded In the past 12 months, has l ack of transportation kept you from medical appts, meetings, work or from getting things needed for daily living? No 04/24/2024 Utilities Answer Date Recorded In the past 12 months, has t he electric, gas, oil or water company threatened to shut off services in your home? No 01/17/2024 Depression Answer Date Recorded Patient Health Questionnaire-2 Score 0 04/14/2025 Internet Access Answer Date Recorded Internet Access Q1 Yes 04/06/2025 Internet Access Q2 Not on file 04/06/2025 Comments Unknown Sex and Gender Information Value Date Recorded Sex Assigned at Female 09/25/2022 10:19 AM EDT Legal Sex Female 10:19 AM EDT Gender Identity Choose not to disclose 10:19 AM EDT Sexual Orientation Straight 09/25/2022 10 :19 AM EDT documented as of this encounter Last Filed Vital Signs Vital Sign Reading Time Taken Comments Blood Pressure 143/80 04/14/2025 9:41 AM EDT Pulse 98 04/14/2025 9:41 AM EDT Temperature 35.3 ??C (95.6 ??F) 04/14/2025 9:41 AM ED T Respiratory Rate 20 04/14/2025 9:41 AM EDT Oxygen Saturation - - Inhaled Oxygen Concentration - - Weight 71.4 kg (157 lb 6.4 oz) 04/14/2025 9:41 A M EDT Height 157.5 cm (5' 2 ) 04/14/2025 9:41 AM EDT Body Mass Index 28.79 04/14/2025 9:41 AM EDT documented in this encounter Functional Status * Over the past 2 weeks, how often have you been bothered by any of the following problems? Question Answer Date of Assessment Author Patient Health Questionnaire -2 Score 0 04/14/2025 9:42 AM EDT Nish Mueller [place] * Little interest or pleasure in doing things Answer Date of Assessment Author Not at all 04/14/2025 9:42 AM Cesia Hernandez MA * Feeling down, depressed, or hopeless Answer Date of Assessment Author Not at all 04/14/2025 9:42 AM Cesia Hernandez [place] * Trouble falling or staying asleep, or sleeping too much Answer Date of Assessment Author Not at all 04/14/2025 9:42 AM Cesia Hernandez MA * Feeling tired or having little energy Answer Date of Assessment Author Not at all 04/14/2025 9:42 AM Cesia Hernandez MA * Poor appetite or overeating Answer Date of Assessment Author Not at all 04/14/2025 9:42 AM Cesia Hernandez MA * Feeling bad about yourself - or that you are a failure or have let yourself or your family down Answer Date of Assessment Author Not at all 04/14/2025 9:42 AM Cesia Hernandez MA * Trouble concentrating on things, such as reading the newspaper or watching television Answer Date of Assessment Author Not at all 04/14/2025 9:42 AM Cesia Hernandez MA * Moving or speaking so slowly that other people could have noticed? Or the opposite - being so fidgety or restless that you have been moving around a lot more than usual. Answer Date of Assessment Author Not at all 04/14/2025 9:42 AM Cesia Hernandez MA * Thoughts that you would be better off or hurting yourself in some way Answer Date of Assessment Author Not at all 04/14/2025 9:42 AM Cesia Hernandez MA * Patient Health Questionnaire-9 Score Answer Date of Assessment Author 0 04/14/2025 9:42 AM Cesia Hernandez MA documented as of this encounter Progress Notes * Constanza Hannah MD - 04/14/2025 9:30 AM EDT SUBJECTIVE: Nicki aLgunas is a 59 y.o. year old adult who presents for Physical . Occupation:at home Lives with:sister, brother in law and nephew Social Hx: denies drinking EtOH, denies smoking cigarettes and denies recreational drug use. Diet:regular Exercise:sedentary Pap Smear:Patient will be schedule for PAP smear Colonoscopy:due on 11/30/2025 Hospitalizations/Surgeries:none Eye Care:referral done today Dental Care:up to date PMHx:on chart Immunizations: PCV 20 today Acute Concerns: Patient reports she was recently in the ED her BP was high, and was having dizziness and vomiting in the ED it was also notice hypokalemia, it was prescribed for her meclizine and it did help her Social History Social History Narrative Not on file Problem List[1] Acute systemic lupus erythematosus (CMS/HCC) Primary hypertension Constipation Fixation hardware in foot GERD (gastroesophageal reflux disease) Hand pain Obstructive sleep apnea syndrome SLE (systemic lupus erythematosus related syndrome) (CMS/HCC) Polyarthralgia Mammogram declined Pap smear of cervix declined Encounter for screening mammogram for malignant neoplasm of breast Hair loss Right foot pain Acquired hallux rigidus of right foot Age-related nuclear cataract of both eyes Bunion, left Dizziness Overweight (BMI 25.0-29.9) Refractive error Bilateral foot pain Benign paroxysmal vertigo of both ears Family History[2] Review of Systems Constitutional: Negative. HENT: Negative. Respiratory: Negative. Cardiovascular: Negative. Neurological: Positive for dizziness. OBJECTIVE: Vitals: 04/14/25 0941 BP: (!) 143/80 BP Location: Left arm Patient Position: Sitting BP Cuff Size: Adult Pulse: 98 Resp: 20 Temp: 95.6 ??F (35.3 ??C) TempSrc: Oral Weight: 157 lb 6.4 oz (71.4 kg) Height: 5' 2 (1.575 m) Physical Exam Constitutional: Appearance: Normal appearance. Cardiovascular: Rate and Rhythm: Normal rate and regular rhythm. Pulmonary: Effort: Pulmonary effort is normal. Breath sounds: Normal breath sounds. Abdominal: General: Abdomen is flat. Palpations: Abdomen is soft. Musculoskeletal: Right lower leg: No edema. Left lower leg: No edema. Neurological: General: No focal deficit present. Mental Status: Nicki is alert and oriented to person, place, and time. Mental status is at baseline. Follow Up: Follow up for next available PAP smear . Medications Ordered Prior to Encounter[3] Problem List Items Addressed This Visit Primary hypertension I advised: - Aerobic exercise to reduce BP. Initial goal of 30 min walk 3-5x/week. Increase as tolerated. - low-sodium diet (goal: <2g/day) and heart healthy diet such as DASH to reduce BP and prevent ASCVD. - Home BP monitoring 1-2 x day with goal of <140/90. - Seek immediate medical attention for chest pain, palpitations, SOB, syncope, or sudden changes inmental status. - Do not change or discontinue current prescriptions without first consulting health care provider Relevant Orders Referral to [facility] Eye Care Benign paroxysmal vertigo of both ears Drink plenty of water Change position slowly I refilled her meclizine Referral to ENT Relevant Medications meclizine (Antivert) 25 MG tablet Other Relevant Orders Referral to ENT SLE (systemic lupus erythematosus related syndrome) ([facility]/HCC) - Primary Continue to follow with rheumatology Relevant Medications ibuprofen 600 MG tablet Other Relevant Orders Referral to [facility] Eye Care Hypokalemia K will be recheck with labs, likely it was low due to vomiting Relevant Orders Comprehensive Metabolic Panel Encounter for screening mammogram for malignant neoplasm of breast Relevant Medications ibuprofen 600 MG tablet Other Relevant Orders BI Mammogram Screening Tomosynthesis Bilateral Encounter for preventive care See HPI Relevant Orders CBC auto differential HIV-1/2 Antigen and Antibodies, Fourth Generation, with Reflexes Hepatitis C Antibody with Reflex to HCV, RNA, Quantitative, Real-Time PCR Lipid Panel, Standard Vitamin D, 25-Hydroxy, Total, Immunoassay TSH with Reflex to Free T4 Prediabetes Today extensive discussion was done about life style modifications I advise healthy diet (low calorie) and cardiovascular exercise Relevant Orders POCT Glucose (Completed) POCT HGB A1C (Completed) Polyarthralgia Relevant Medications ibuprofen 600 MG tablet Other Visit Diagnoses Encounter for immunization Relevant Medications ibuprofen 600 MG tablet Other Relevant Orders PCV-20 VACCINE 6 wks + (Completed) [1] Patient Active Problem List Diagnosis Acute systemic lupus erythematosus (CMS/HCC) Primary hypertension Constipation Fixation hardware in foot GERD (gastroesophageal reflux disease) Hand pain Obstructive sleep apnea syndrome SLE (systemic lupus erythematosus related syndrome) (CMS/HCC) Polyarthralgia Mammogram declined Pap smear of cervix declined Encounter for screening mammogram for malignant neoplasm of breast Hair loss Right foot pain Acquired hallux rigidus of right foot Age-related nuclear cataract of both eyes Bunion, left Dizziness Overweight (BMI 25.0-29.9) Refractive error Bilateral foot pain Benign paroxysmal vertigo of both ears Hypokalemia Encounter for preventive care Prediabetes [2] No family history on file. [3] Current Outpatient Medications on File Prior to Visit Medication Sig Dispense Refill acetaminophen (Tylenol 8 Hour) 650 MG ER tablet TAKE 2 TABLETS BY MOUTH EVERY 8 HOURS NEEDED. SWALLOW WITH DO NOT BREAK, CRUSH, DISSOLVE OR CHEW 60 tablet 0 amLODIPine (Norvasc) 10 MG tablet TAKE 1 TABLET BY MOUTH EVERY DAY 90 tablet 0 Aspirin EC Adult Low Dose 81 MG EC tablet TAKE 1 TABLET BY MOUTH ONCE DAILY 90 tablet 0 Blood Pressure Monitoring (Blood Pressure Cuff) misc 1 each Once daily. 1 each 0 hydroCHLOROthiazide 12.5 MG tablet Take 1 tablet (12.5 mg) by mouth Once per day. 30 tablet 11 omeprazole (PriLOSEC) [address] capsule TAKE 1 CAPSULE BY MOUTH EVERY DAY BEFORE A MEAL 90 capsule 0 [DISCONTINUED] ibuprofen 600 MG tablet TAKE 1 TABLET BY MOUTH TWICE DAILY WITH FOOD 30 tablet 0 No current facility-administered medications on file prior to visit. documented in this encounter Miscellaneous Notes * Assessment & Plan Note - Constanza Hannah MD - 04/14/2025 10:50 AM EDT Associated Problem(s): SLE (systemic lupus erythematosus related syndrome) ([facility]) Continue to follow with rheumatology * Assessment & Plan Note - Constanza Hannah MD - 04/14/2025 10:50 AM EDT Associated Problem(s): Encounter for preventive care See HPI * Assessment & Plan Note - Constanza Hannah MD - 04/14/2025 10:50 AM EDT Associated Problem(s): Hypokalemia K will be recheck with labs, likely it was low due to vomiting * Assessment & Plan Note - Constanza Hannah MD - 04/14/2025 10:50 AM EDT Associated Problem(s): Prediabetes Today extensive discussion was done about life style modifications I advise healthy diet (low calorie) and cardiovascular exercise * Assessment & Plan Note - Constanza Hannah MD - 04/14/2025 10:50 AM EDT Associated Problem(s): Benign paroxysmal vertigo of both ears Drink plenty of water Change position slowly I refilled her meclizine Referral to ENT * Assessment & Plan Note - Constanza Hannah MD - 04/14/2025 10:49 AM EDT Associated Problem(s): Primary hypertension I advised: - Aerobic exercise to reduce BP. Initial goal of 30 min walk 3-5x/week. Increase as tolerated. - low-sodium diet (goal: <2g/day) and heart healthy diet such as DASH to reduce BP and prevent ASCVD. - Home BP monitoring 1-2 x day with goal of <140/90. - Seek immediate medical attention for chest pain, palpitations, SOB, syncope, or sudden changes inmental status. - Do not change or discontinue current prescriptions without first consulting health care provider documented in this encounter Plan of Treatment Upcoming Encounters Date Type Department Care Team (Late st Contact Info) Description 06/22/2025 2:45 PM EDT Procedure Visit [facility] MED[facility] [address] [place] [address] Constanza Barahona MD [address] [place], [place] [phone] 06/23/2025 8:00 AM EDT Office Visit [facility] ADULT DENTAL [address] [place] [address] Sydnie, Nidia [address] [place] [address] Scheduled Orders Name Type Priority Associated Diagnoses Orde r Schedule CBC auto differential Lab Routine Encounter for preventive care Expected: 04/14/2025 (Approximate), Expires: 04/14/2026 Comprehensive Metabolic Panel Lab Routine Hypokalemia Expected: 04/14/2025 (Approximate), Expires: 04/14/2026 HIV-1/2 Antigen and Antibodies, Fourth Generation, with Reflexes Lab Routine Encounter for preventive care Expected: 04/14/2025 (Approximate), Expires: 04/14/2026 Hepatitis C Antibody with Reflex to HCV, RNA, Quantitative, Real-Time PCR Lab Routine Encounter for preventive care Expected: 04/14/2025, Expires: 04/14/2026 Lipid Panel, Standard Lab Routine Encounter for preventive care Expected: 04/14/2025 (Approximate), Expires: 04/14/2026 Vitamin D, 25-Hydroxy, Total, Immunoassay Lab Routine Encounter for preventive care Expected: 04/14/2025 (Approximate), Expires: 04/14/2026 TSH with Reflex to Free T4 Lab Routine Encounter for preventive care Expected: 04/14/2025 (Approximate), Expires: 04/14/2026 BI Mammogram Screening Tomosynthesis Bilateral Imaging Routine Encounter for screening mammogram for malignant neoplasm of breast Expected: 04/14/2025, Expires: 06/14/2026 Scheduled Referrals Name Type Priority Associated Diagnoses Orde r Schedule Referral to ENT Outpatient Referral Routine Benign paroxysmal vertigo of both ears Expected: 04/14/2025 (Approximate), Expires: 04/14/2026 Referral to [facility] Eye Care Outpatient Referral Routine Primary hypertension SLE (systemic lupus erythematosus related syndrome) (CMS/HCC) Expected: 04/14/2025 (Approximate), Expires: 04/14/2026 documented as of this encounter Procedures Procedure Name Priority Date/Time Associated Diagnosis Comments POCT GLYCATED HEMOGLOBIN, TOTAL Routine 04/14/2025 9:47 AM EDT Prediabetes POCT GLUCOSE Routine 04/14/2025 9:47 AM EDT Prediabetes documented in this encounter Results * POCT HGB A1C (04/14/2025 9:47 AM EDT) Hemoglobin A1C 5.7 4.0 - 6.0 % QC Media Lot # [id number] Lot# Expiration Date Blood 04/14/2025 9:47 AM EDT Constanza Hannah MD POINT OF CARE TEST EN TER/EDIT ORDERABLES Final Result * POCT Glucose (04/14/2025 9:47 AM EDT) Glucose Blood, POC 121 60 - 200 mg/dL QC Media Lot # [id number] Lot# Expiration Date Blood Capillary blood specimen / Unknown 04/14/2025 9:47 AM EDT Constanza Hannah MD POINT OF CARE TEST EN TER/EDIT ORDERABLES Final Result documented in this encounter Visit Diagnoses Diagnosis SLE (systemic lupus erythematosus related syndrome) ([facility])- Primary Systemic lupus erythematosus Primary hypertension Unspecified essential hypertension Benign paroxysmal vertigo of both ears Hypokalemia Hypopotassemia Encounter for screening mammogram for malignant neoplasm of breast Encounter for preventive care Prediabetes Other abnormal glucose Polyarthralgia Pain in joint, multiple sites Encounter for immunization documented in this encounter Additional Health Concerns Assessment Noted Time PHQ-9 Depression Total Score: 0 04/14/20 25 9:42 AM EDT documented as of this encounter Care Teams Field Technical Assistant Relationship Specialty Start Date End Date Constanza Barahona MD [address] [place] [phone] PCP - General Family Medicine 08/07/18 documented as of this encounter
--- OUTSIDE RECORDS SUMMARY | 2025-04-14 11:54 | XMS_ITS | Referral Summary ---
Author Organization [facility] Address [address] [place] [address] Care Team Providers Care Payroll Human Resources Assistant Name Role Phone Constanza Barahona MD Primary Care Provider Encounters Date Type Department Care Team Description 04/13/2025 Refill [facility] [address] [place] [phone] Billing Services Manager: Destiny Chung MD Seronegative rheumatoid arthritis (HCC); Long-term use of Plaquenil; Bilateral hand pain; Arthralgia of multiple joints 02/27/2025 1:00 PM EDT Telehealth [facility] [address] [place] [phone] Billing Services Manager: Destiny Chung MD Arthralgia of multiple joints [...] (07/14/2020): Added automatically from request for surgery [id number] Social History Tobacco Use Types Packs/Day Years [...] Not on file Procedures * Due to [place] state law, this organization might not be sharing negative HIV tests. Procedure Name Priority Date/Time Associated Diagnosis Comments COMPREHENSIVE METABOLIC PANEL Routine 09/13/2022 4:05 PM EDT Seronegative rheumatoid arthritis Long-term use of Plaquenil Bilateral hand pain COLONOSCOPY 11/30/2015 2:32 PM EST from Last 3 Months or Most Recently Relevant to Health Maintenance Results * Due to [place] state law, this organization might not be sharing negative HIV tests. * (ABNORMAL) Comprehensive metabolic panel (09/13/2022 4:05 PM EDT) NA 140 135 - 145 mmol/L 09/13/2022 5:24 PM EDT [facility] K 3.4(L) 3.5 - 5.3 mmol/L 09/13/2022 5:24 PM EDT [facility] Cl 103 97 - 110 mmol/L 09/13/2022 5:24 PM EDT [facility] CO2 30 24 - 32 mmol/L 09/13/2022 5:24 PM EDT [facility] Anion Gap 7 5 - 15 09/13/2022 5:24 PM EDT [facility] Glucose 87 70 - 99 mg/dL 09/13/2022 5:24 PM EDT [facility] Creatinine 0.63 0.50 - 1.20 mg/dL 09/13/2022 5:24 PM EDT [facility] Calcium 9.3 8.7 - 10.7 mg/dL 09/13/2022 5:24 PM EDT [facility] Total Protein 6.9 6.0 - 8.0 g/dL 09/13/2022 5:24 PM EDT [facility] Albumin 3.9 3.5 - 4.8 g/dL 09/13/2022 5:24 PM EDT [facility] Bilirubin, Total 0.2(L) 0.3 - 1.2 mg/dL 09/13/2022 5:24 PM EDT [facility] Alkaline Phosphatase 77 30 - 115 U/L 09/13/2022 5:24 PM EDT [facility] AST 16 10 - 40 U/L 09/13/2022 5:24 PM EDT [facility] ALT 11 10 - 40 U/L 09/13/2022 5:24 PM EDT [facility] BUN 13 7 - 23 mg/dL 09/13/2022 5:24 PM EDT [facility] eGFR >90 >=90 mL/min/1. 73m2 09/13/2022 5:24 PM EDT [facility] Comment: Estimated Glomerular [...] MD LAB BLOOD ORDERABLES Final Resul t [facility] [address] [place] [address], * COLONOSCOPY (11/30/2015 2:32 PM EST) Narrative [...] verified by the physician,the nurse and the interactive video technician in the procedure room. Mental Status [...] Most Recently Relevant to Health Maintenance Insurance [employer] Advance Directives Documents on File Type Date Recorded Patient Transitional Nurse Expl anation Health Care Proxy 04/19/2021 6:27 AM * Full Code (Latest Code Status on File) Date Activated Date Inactivated Comments 04/19/2021 5:44 AM 04/19/2021 6:15 PM Healthcare Agents on File Name Relationship Healthcare Agent Relationship Communication Arash Zamudio Health Care Agent Care Teams Payroll Human Resources Assistant Relationship Specialty Start Date End Date Constanza Barahona MD [address] [place] [phone] PCP - General 03/04/19
--- OUTSIDE RECORDS SUMMARY | 2025-04-14 11:54 | XMS_ITS | Encounter Summary ---
Author Organization [facility] Address [address] [place] [address] Care Team Providers Care Caddie Supervisor Name Role Phone Constanza Barahona MD Primary Care Provider Reason for Visit * Reason Comments Med Refill Encounter Details Date Type Department Care Team (Late st Contact Info) Description 04/13/2025 Refill [facility] [address] [place] [address] Gravity Prospecting Observer Helper: Destiny Chung MD [address] [place] [phone] Seronegative rheumatoid arthritis (HCC); Long-term use of Plaquenil; Bilateral hand pain; Arthralgia of multiple joints Social History Tobacco Use Types Packs/Day Years Used Date Smoking Tobacco: Never Passive Smoke Exposure: Never Smokeless Tobacco: Never Comments:tried once in 2004 Alcohol Use Standard Drinks/Week Comments Yes 0 (1 standard drink = 0.6 oz pur e alcohol) beer, rare use Comments No Sex and Gender Information Value Date Recorded Sex Assigned at Not on file Legal Sex Female 6:14 AM EDT Gender Identity Not on file Sexual Orientation Not on file documented as of this encounter Miscellaneous Notes * Telephone Encounter - BRAYDON Puri - 04/14/2025 9:38 AM EDT [id number]- belgian interp. Spoke with patient and she is NO longer taking med Spoke with pharmacy, shoulder not be getting any more request documented in this encounter Plan of Treatment Not on file documented as of this encounter Visit Diagnoses Diagnosis Seronegative rheumatoid arthritis (HCC) Rheumatoid arthritis Long-term use of Plaquenil Bilateral hand pain Arthralgia of multiple joints Pain in joint, multiple sites documented in this encounter Care Teams Caddie Supervisor Relationship Specialty Start Date End Date Constanza Barahona MD [address] [place] [address] PCP - General 03/04/19 documented as of this encounter
--- OUTSIDE RECORDS SUMMARY | 2025-04-14 11:54 | XMS_ITS | Encounter Summary ---
Author Organization [employer] Address [address] [facility] 7t [place] [address] Care Team Providers Care Bioengineer Name Role Phone Constanza Barahona MD Primary Care Provide r Reason for Visit * Reason Onset Date Comments chart prep 04/13/2025 Encounter Details Date Type Department Care Team ([facility] st Contact Info) Description 04/13/[address] [facility] MEDICINE [address] [place] [address] Constanza Barahona MD [address] [place] [address] chart prep Social History Tobacco Use Types Packs/Day Years Used Date Smoking Tobacco: Never Passive Smoke Exposure: Never Smokeless Tobacco: Never Depression Answer Date Recorded Patient Health Questionnaire-9 [...] AM EDT documented as of this encounter Miscellaneous Notes * Telephone Encounter - Zohreh Moser MA - 04/13/2025 3:34 PM EDT Chart Prep Labs: done Images: not done last mammo 2021 Referrals: complete Vaccines due: Covid, Flu, PCV20, and Zoster Screenings: pap smear Overdue care gaps: A1c, Glucose, SBIRT, PHQ-9, DARVIN-7, Disability screen, and Tobacco documented in this encounter Plan of Treatment Upcoming Encounters Date Type Department Care Team (Late st Contact Info) Description 06/22/2025 2:45 PM EDT Procedure Visit [facility] MEDICINE [address] [place] [address] Constanza Barahona MD [address] [place] [address] 06/23/2025 8:00 AM EDT Office Visit [facility] ADULT DENTAL [address] [place] [address] Nidia Otoole [address] [place] [address] documented as of this encounter Visit Diagnoses Not on filedocumented in this encounter Additional Health Concerns Assessment Noted Time PHQ-9 Depression Total Score: 0 01/25/20 24 2:35 PM EST documented as of this encounter Care Teams Bioengineer Relationship Specialty Start Date End Date Constanza Barahona MD [address] [place] [phone] PCP - General Family Medicine 08/07/18 documented as of this encounter
--- OUTSIDE RECORDS SUMMARY | 2025-04-14 11:54 | XMS_ITS | Encounter Summary ---
Author Organization [employer] Address [address] [facility] 7t [place] [address] Care Team Providers Care Drilling Field Operator Name Role Phone Constanza Barahona MD Primary Care Provide r Reason for Visit * Reason Comments Med Refill Encounter Details Date Type Department Care Team ([facility] st Contact Info) Description 04/13/2025 Refill [facility] MEDICINE [address] [place], [place] [phone] Anne Byrd MD [address] [place], [place] [phone] Social History Tobacco Use Types Packs/Day Years [...] AM EDT documented as of this encounter Functional Status * Over the past 2 weeks, how often have you been bothered by any of the following problems? Question Answer Date of Assessment Author Patient Health Questionnaire -2 Score 0 04/14/2025 9:42 AM EDT Nish Mueller MA * Little interest or pleasure in doing things Answer Date of Assessment Author Not at all 04/14/2025 9:42 AM EDT Cesia Mueller MA * Feeling down, depressed, or hopeless [...] Author Not at all 04/14/2025 9:42 AM EDT Cesia Mueller MA * Moving or speaking so slowly that other people could have noticed? Or the opposite - being so fidgety or restless that you have been moving around a lot more than usual. Answer Date of Assessment Author Not at all 04/14/2025 9:42 AM RADHAT Cesia Mueller MA * Thoughts that you would be better off or hurting yourself in some way Answer Date of Assessment Author Not at all 04/14/2025 9:42 AM EDT Cesia Mueller MA * Patient Health Questionnaire-9 Score Answer Date of Assessment Author 0 04/14/2025 9:42 AM Cesia Hernandez MA documented as of this encounter Plan of Treatment Upcoming Encounters Date Type Department Care Team (Late st Contact Info) Description 06/22/2025 2:45 PM EDT Procedure Visit [facility] MEDICINE [address] [place] [address] Constanza Barahona MD [address] [place] [address] 06/23/2025 8:00 AM EDT Office Visit [facility] ADULT DENTAL [address] [place] [address] Nidia Otoole [address] [place] [address] documented as of this encounter Visit Diagnoses Not on filedocumented in this encounter Additional Health Concerns Assessment Noted Time PHQ-9 Depression Total Score: 0 01/25/20 24 2:35 PM EST documented as of this encounter Care Teams Drilling Field Operator Relationship Specialty Start Date End Date Constanza Barahona MD [address] [place] [address] PCP - General Family Medicine 08/07/18 documented as of this encounter
--- OUTSIDE RECORDS SUMMARY | 2025-04-14 11:54 | XMS_ITS | Encounter Summary ---
Author Organization [employer] Address [address] [place] [address] 7 [place] [address] Care Team Providers Care Mine Engineering Superintendent Name Role Phone Constanza Barahona MD Primary Care Provide r Reason for Visit * Reason Comments Med Refill Encounter Details Date Type Department Care Team (Late st Contact Info) Description 05/24/[address] [facility] MEDICINE [address] [place], [place] [phone] Anne Byrd MD [address] [place], [place] [phone] Social History Tobacco Use Types Packs/Day Years [...] Encounters Date Type Department Care Team (Late Contact Info) Description 06/22/2025 2:45 PM EDT Procedure Visit [facility] MEDICINE [address] [place], [place] [phone] Constanza Barahona MD [address] [place], [place] [phone] 06/23/2025 8:00 AM EDT Office Visit [facility] ADULT DENTAL [address] [place], [place] [phone] Nidia Otoole [address] [place] [address] documented as of this encounter Visit Diagnoses Not on filedocumented in this encounter Care Teams Mine Engineering Superintendent Relationship Specialty Start Date End Date Constanza Barahona MD [address] [place] [address] PCP - General Family Medicine 08/07/18 documented as of this encounter
--- OUTSIDE RECORDS SUMMARY | 2025-04-14 11:54 | XMS_ITS | Encounter Summary ---
Author Organization [employer] [facility] Address [address] [place] [address] 7 [place] [address] Care Team Providers Care Link Fabric Machine Operator Name Role Phone Constanza Barahona MD Primary Care Provide r Encounter Details Date Type Department Care Team (Late st Contact Info) Description 08/15/2023 Orders Only [facility] MEDICINE [address] [place], [place] [phone] ProviderGloria MD Social History Tobacco Use Types Packs/Day Years [...] Description 06/22/2025 2:45 PM EDT Procedure Visit [facility] MEDICINE [address] [place] [address] Constanza Barahona MD [address] [place], [place] [phone] 06/23/2025 8:00 AM EDT Office Visit [facility] ADULT DENTAL [address] [place] [address] Nidia Otoole [address] [place] [address] documented as of this encounter Procedures Procedure Name Priority Date/Time Associated Diagnosis Comments HM COLONOSCOPY Routine 11/30/2015 documented in this encounter Results * Hm Colonoscopy (11/30/2015) us Historical Provider HEALTH MAINTENANCE Final Result documented in this encounter Visit Diagnoses Not on filedocumented in this encounter Care Teams Link Fabric Machine Operator Relationship Specialty Start Date End Date Constanza Barahona MD [address] [place] [phone] PCP - General Family Medicine 08/07/18 documented as of this encounter
--- OUTSIDE RECORDS SUMMARY | 2025-04-14 11:54 | XMS_ITS | Encounter Summary ---
Author Organization [employer] Address [address] [facility] 7t [place] [address] Care Team Providers Care Blade Sharpener Name Role Phone Constanza Barahona MD Primary Care Provide r Reason for Visit * Reason Comments Med Refill Encounter Details Date Type Department Care Team ([facility] st Contact Info) Description 04/13/2025 Refill [facility] MEDICINE [address] [place], [place] [phone] Constanza Barahona MD [address] [place], [place] [phone] Primary hypertension; Polyarthralgia; Gastroesophageal reflux disease, unspecified whether esophagitis present; Benign hypertension Social History Tobacco Use Types Packs/Day Years [...] 9:42 AM RADHAT Cesia Mueller MA * Feeling down, depressed, or hopeless Answer Date of Assessment Author Not at all 04/14/2025 9:42 AM RADHAT Cesia Mueller MA * Trouble falling or staying asleep, or sleeping too much Answer Date of Assessment Author Not at all 04/14/2025 9:42 AM Cesia Hernandez MA * Feeling tired or having little energy Answer Date of Assessment Author Not at all 04/14/2025 9:42 AM RADHAT Cesia Mueller MA * Poor appetite or overeating Answer [...] Description 06/22/2025 2:45 PM EDT Procedure Visit [facility] MEDICINE [address] [place] [address] Constanza Barahona MD [address] [place] [address] 06/23/2025 8:00 AM EDT Office Visit [facility] ADULT DENTAL [address] [place] [address] Sydnie, Nidia [address] [place] [address] documented as of this encounter Visit Diagnoses Diagnosis Primary hypertension Unspecified essential hypertension Polyarthralgia Pain in joint, multiple sites Gastroesophageal reflux disease, unspecified whether esophagitis present Benign hypertension Essential hypertension, benign documented in this encounter Additional Health Concerns Assessment Noted Time PHQ-9 Depression Total Score: 0 01/25/20 24 2:35 PM EST documented as of this encounter Care Teams Blade Sharpener Relationship Specialty Start Date End Date Constanza Barahona MD [address] [place] [address] PCP - General Family Medicine 08/07/18 documented as of this encounter
--- OUTSIDE RECORDS SUMMARY | 2025-04-14 11:54 | XMS_ITS | Clinical Summary ---
Author Organization [facility] Address [address] [place] [address] Care Team Providers Care Manager Asset Management Name Role Phone Constanza Barahona MD Primary [...] (07/14/2020): Added automatically from request for surgery [id number] Encounters Date Type Department Care Team Description 04/13/2025 Refill [facility] [address] [place] [address] Visual Stylist: Destiny Chung MD Seronegative rheumatoid arthritis (HCC); Long-term use of Plaquenil; Bilateral hand pain; Arthralgia of multiple joints 02/27/2025 1:00 PM EDT Telehealth [facility] [address] [place] [phone] Visual Stylist: Destiny Chung MD Arthralgia of multiple joints [...] 04/16/2021, 08/18/2016, Additional history exists COVID-19 Vaccine ( - season) 2024 Mammogram 09/20/2024 09/20/2022 RSV [...] complete this topic Procedures * Due to [place] F[place] law, this organization might not be sharing negative HIV tests. Procedure Name Priority Date/Time Associated Diagnosis Comments COMPREHENSIVE METABOLIC PANEL Routine 09/13/2022 4:05 PM EDT Seronegative rheumatoid arthritis Long-term use of Plaquenil Bilateral hand pain COLONOSCOPY 11/30/2015 2:32 PM EST from Last 3 Months or Most Recently Relevant to Health Maintenance Results * Due to [place] law, this organization might not be sharing negative HIV tests. * (ABNORMAL) Comprehensive metabolic panel (09/13/2022 4:05 PM EDT) NA 140 135 - 145 mmol/L 09/13/2022 5:24 PM EDT [facility] K 3.4(L) 3.5 - 5.3 mmol/L 09/13/2022 5:24 PM EDT [facility] Cl 103 97 - 110 mmol/L 09/13/2022 5:24 PM EDT [facility] CO2 30 24 - 32 mmol/L 09/13/2022 5:24 PM EDT [facility] Anion Gap 7 5 - 15 09/13/2022 5:24 PM EDT [facility] Glucose 87 70 - 99 mg/dL 09/13/2022 5:24 PM EDT [facility] Creatinine 0.63 0.50 - 1.20 mg/dL 09/13/2022 5:24 PM T [facility] Calcium 9.3 8.7 - 10.7 mg/dL 09/13/2022 5:24 PM EDT [facility] Total Protein 6.9 6.0 - 8.0 g/dL 09/13/2022 5:24 PM EDT [facility] Albumin 3.9 3.5 - 4.8 g/dL 09/13/2022 5:24 PM T [facility] Bilirubin, Total 0.2(L) 0.3 - 1.2 mg/dL 09/13/2022 5:24 PM EDT [facility] Alkaline Phosphatase 77 30 - 115 U/L 09/13/2022 5:24 PM EDT [facility] AST 16 10 - 40 U/L 09/13/2022 5:24 PM EDT [facility] ALT 11 10 - 40 U/L 09/13/2022 5:24 PM T [facility] BUN 13 7 - 23 mg/dL 09/13/2022 5:24 PM EDT [facility] eGFR >90 >=90 mL/min/1. 73m2 09/13/2022 5:24 PM EDT [facility] Comment: Estimated [...] MD LAB BLOOD ORDERABLES Final Resul t [facility] [address] [place] [address], * COLONOSCOPY (11/30/2015 2:32 PM EST) Narrative Procedure Note Yazmin Vincent - 11/30/2015 2:32 PM EST Patient Name: Nicki Mari Procedure Date: 11/30/2015 2:32 PM Date of : 1965 Admit Type: Outpatient Age: 50 Room: Room 5 Gender: Female Note Status: Finalized Attending MD: Yazmin Vincent MD Procedure: Colonoscopy Indications: Screening for colorectal malignant neoplasm Comorbidities Providers: aYzmin Vincent MD, Kristan Mahajan MD (Fellow) Referring [...] verified by the physician,the nurse and the installation technician in the procedure room. Mental Status [...] Most Recently Relevant to Health Maintenance Insurance [employer] HSNO/FREE CARE Advance Directives Documents on File Type Date Recorded Patient Lead Embedded Software Engineer Expl anation Health Care Proxy 04/19/2021 6:27 AM * Full Code (Latest Code Status on File) Date Activated Date Inactivated Comments 04/19/2021 5:44 AM 04/19/2021 6:15 PM Healthcare Agents on File Name Relationship Healthcare Agent Relationship Communication Arash Gregory [facility] Health Care Agent Care Teams Manager Asset Management Relationship Specialty Start Date End Date Constanza Barahona MD [address] [place] [address] PCP - General 03/04/19
--- OUTSIDE RECORDS SUMMARY | 2025-04-14 11:54 | XMS_ITS | Encounter Summary ---
Author Organization [employer] Address [address] [facility] 7t [place] [address] Care Team Providers Care Cotton Puller Name Role Phone Constanza Barahona MD Primary Care Provide r Encounter Details Date Type Department Care Team (Latest Contact Info) Description 04/14/2025 Travel Social History Tobacco Use Types Packs/Day Years [...] Questionnaire -2 Score 0 04/14/2025 9:42 AM Nish Hernandez MA * Little interest or pleasure in [...] 9:42 AM EDT Cesia Mueller MA * Thoughts that you would be better off or hurting yourself in some way Answer Date of Assessment Author Not at all 04/14/2025 9:42 AM EDT Cesia Mueller MA * Patient Health Questionnaire-9 Score Answer Date of Assessment Author 0 04/14/2025 9:42 AM EDT Cesia Mueller MA documented as of this encounter Plan of Treatment Upcoming Encounters Date Type Department Care Team (Late st Contact Info) Description 06/22/2025 2:45 PM EDT Procedure Visit [facility] MEDICINE [address] [place] [address] Constanza Barahona MD [address] [place] [address] 06/23/2025 8:00 AM EDT Office Visit [facility] ADULT DENTAL [address] [place] [address] Sydnie, Nidai [address] [place] [address] documented as of this encounter Visit Diagnoses Not on filedocumented in this encounter Additional Health Concerns Assessment Noted Time PHQ-9 Depression Total Score: 0 04/14/20 9:42 AM EDT documented as of this encounter Care Teams Cotton Puller Relationship Specialty Start Date End Date Constanza Barahona MD [address] [place] [address] PCP - General Family Medicine 08/07/18 documented as of this encounter
--- OUTSIDE RECORDS SUMMARY | 2025-04-14 11:54 | XMS_ITS | Encounter Summary ---
Author Organization [employer] Address [address] [place] [address] 7 [place] [address] Care Team Providers Care Cement Car Dumper Name Role Phone Constanza Barahona MD Primary Care Provide r Reason for Visit * Reason Comments Med Refill Encounter Details Date Type Department Care Team (Late st Contact Info) Description 10/26/2023 Refill [facility] MEDICINE [address] [place], [place] [phone] Anne Byrd MD [address] [place], [place] [phone] Social History Tobacco Use Types Packs/Day Years [...] 2:45 PM EDT Procedure Visit [facility] MEDICINE [address] [place], [place] [phone] Constanza Barahona MD [address] [place], [place] [phone] 06/23/2025 8:00 AM EDT Office Visit [facility] ADULT DENTAL [address] [place], [place] [phone] Nidia Otoole [address] [place] [address] documented as of this encounter Visit Diagnoses Not on filedocumented in this encounter Care Teams Cement Car Dumper Relationship Specialty Start Date End Date Constanza Barahona MD [address] [place] [address] PCP - General Family Medicine 08/07/18 documented as of this encounter
--- OUTSIDE RECORDS SUMMARY | 2025-04-14 11:54 | XMS_ITS | Encounter Summary ---
Author Organization [facility] Address [address] [place] [address] Care Team Providers Care Combustion Analyst Name Role Phone Constanza Barahona MD Primary Care Provider Reason for Visit * Reason Onset Date Comments needs later time in day please 01/13/2022 Encounter Details Date Type Department Care Team (Late st Contact Info) Description 01/13/2022 Telephone [facility] [address] [place] [phone] Telephone Intake, Staff needs later time in day please Social History Tobacco Use Types Packs/Day Years Used Date Smoking Tobacco: Never Smokeless Tobacco: Never Comments:tried once in [...] encounter Miscellaneous Notes * Telephone Encounter - Luz Marina Boo - 01/13/2022 2:41 PM EST Est. Pt of Dr. Brooks Pt calling in to ask if it is possible to please schedule her appt. Later in the day. I tried to occommodate pt's request but per DT I was unable to do so. Pt can be reached at construction flagger is needed please [phone] documented in this encounter Plan of Treatment Not on file documented as of this encounter Visit Diagnoses Not on filedocumented in this encounter Care Teams Combustion Analyst Relationship Specialty Start Date End Date Constanza Barahona MD [address] [place] [address] PCP - General 03/04/19 documented as of this encounter
--- OUTSIDE RECORDS SUMMARY | 2025-04-14 11:54 | XMS_ITS | Encounter Summary ---
Author Organization [employer] Address [address] [place] [address] 7t [place] [address] Care Team Providers Care Cashier Assistant Name Role Phone Constanza Barahona MD Primary Care Provide r Encounter Details Date Type Department Care Team (Late st Contact Info) Description 05/24/2023 Orders Only [facility] [address] [place], [place] [phone] Sally Chang LPN Social History Tobacco Use [...] 2:45 PM EDT Procedure Visit [facility] MEDICINE [address] [place] [address] Constanza Barahona MD [address] [place] [address] 06/23/2025 8:00 AM EDT Office Visit [facility] ADULT DENTAL [address] [place] [address] Nidia Otoole [address] [place] [address] documented as of this encounter Visit Diagnoses Not on filedocumented in this encounter Care Teams Cashier Assistant Relationship Specialty Start Date End Date Constanza Barahona MD [address] [place] [address] PCP - General Family Medicine 08/07/18 documented as of this encounter
--- OUTSIDE RECORDS SUMMARY | 2025-04-14 11:54 | XMS_ITS | Clinical Summary ---
Author Organization [employer] Address [address] [facility] [address] [place] [address] Care Team Providers Care Tool Operator Name Role Phone Constanza Barahona MD Primary Care Provide r Allergies Active Allergy Reactions Criticality Noted Date Comments Penicillins Unknown Low 03/14/2025 Medications Blood Pressure Monitoring (Blood Pressure Cuff) miscIndications :Primary hypertension 1 each Once daily. 1 each 05/02/20 24 Active hydroCHLOROthia zide 12.5 MG tabletIndicatio ns:Primary hypertension Take 1 tablet (12.5 mg) by mouth Once per day. 30 tablet 11 05/02/20 24 025 Active Aspirin EC Adult Low Dose 81 MG EC tablet TAKE 1 TABLET BY MOUTH ONCE DAILY 90 tablet 02/25/20 25 Active acetaminophen (Tylenol 8 Hour) 650 MG ER tabletIndicatio ns:Polyarthralg ia TAKE 2 TABLETS BY MOUTH EVERY 8 HOURS NEEDED. SWALLOW WITH DO NOT BREAK, CRUSH, DISSOLVE OR CHEW 60 tablet 02/25/20 25 Active amLODIPine (Norvasc) 10 MG tabletIndicatio ns:Benign hypertension TAKE 1 TABLET BY MOUTH EVERY DAY 90 tablet 02/25/20 25 Active omeprazole (PriLOSEC) [address] capsuleIndicati ons:Gastroesoph ageal reflux disease, unspecified whether esophagitis present TAKE 1 CAPSULE BY MOUTH EVERY DAY BEFORE A MEAL 90 capsule 02/25/20 25 Active meclizine (Antivert) 25 MG tabletIndicatio ns:Benign paroxysmal vertigo of both ears Take 1 tablet (25 mg) by mouth if needed in the morning, at noon, and at bedtime for dizziness for up to 20 days. 30 tablet 1 04/14/20 25 025 Active ibuprofen 600 MG tabletIndicatio ns:Polyarthralg ia TAKE 1 TABLET BY MOUTH TWICE DAILY WITH FOOD 30 tablet 2 04/14/20 25 Active ibuprofen 600 MG tabletIndicatio ns:Polyarthralg ia TAKE 1 TABLET BY MOUTH TWICE DAILY WITH FOOD 30 tablet 02/25/20 25 025 Discontinued(Re order (will not trigger notification to Pharmacy)) Active Problems Problem Noted Date Diagnosed Date Benign paroxysmal vertigo of both ears Assessment & Plan (04/14/2025 10:50 AM EDT): Drink plenty of water Change position slowly I refilled her meclizine Referral to ENT Hypokalemia 04/14/2025 Assessment & Plan (04/14/2025 10:50 AM EDT): K will be recheck with labs, likely it was low due to vomiting Encounter for preventive care 04/14/2025 Assessment & Plan (04/14/2025 10:50 AM EDT): See HPI Prediabetes 04/14/2025 Assessment & Plan (04/14/2025 10:50 AM EDT): Today extensive discussion was done about life style modifications I advise healthy diet (low calorie) and cardiovascular exercise Dizziness 03/17/2025 Right foot pain 06/06/2024 Encounter for screening mamm ogram for malignant neoplasm of breast 05/02/2024 Hair loss 05/02/2024 SLE (systemic lupus erythematosus related syndro me) 01/25/2024 Assessment & Plan (04/14/2025 10:50 AM EDT): Continue to follow with rheumatology Assessment & Plan (06/09/2024 5:26 PM EDT): Continue to follow with rheumatology Assessment & Plan (05/02/2024 11:09 PM EDT): Continue to follow with rheumatology Assessment & Plan (01/25/2024 4:32 PM EST): Patient is not taking her plaquenil Patient tells me she has an upcoming appointment with rheumatology Polyarthralgia 01/25/2024 Mammogram declined 01/25/2024 Pap smear of cervix declined 01/25/2024 Acute systemic lupus erythematosus 02/08/2023 Fixation hardware in foot 02/08/2023 Hand pain 02/08/2023 Age-related nuclear cataract of both eyes 2020 Refractive error 06/06/2021 Bunion, left 02/21/2016 Constipation 10/28/2015 GERD (gastroesophageal reflux disease) 5 Assessment & Plan (05/02/2024 11:08 PM EDT): I advise patient to avoid NSAIDs, spicy and acid food, I advise to eat at the same time every day, I advise to elevate the head of the bed and take medications as prescribe Acquired hallux rigidus of right foot 10/28/2015 Overweight (BMI 25.0-29.9) 10/28/2015 Bilateral foot pain 05/18/2015 Obstructive sleep apnea syndrome 07/14/2013 Primary hypertension 11/26/1960 Assessment & Plan (04/14/2025 10:49 AM EDT): I advised: - Aerobic exercise to reduce BP. Initial goal of 30 min walk 3-5x/week. Increase as tolerated. - low-sodium diet (goal: <2g/day) and heart healthy diet such as DASH to reduce BP and prevent ASCVD. - Home BP monitoring 1-2 x day with goal of <140/90. - Seek immediate medical attention for chest pain, palpitations, SOB, syncope, or sudden changes in mental status. - Do not change or discontinue current prescriptions without first consulting health care provider Assessment & Plan (06/09/2024 5:25 PM EDT): - Aerobic exercise to reduce BP. Initial goal of 30 min walk 3-5x/week. Increase as tolerated. - low-sodium diet (goal: <2g/day) and heart healthy diet such as DASH to reduce BP and prevent ASCVD. - Home BP monitoring 1-2 x day with goal of <140/90. - Seek immediate medical attention for chest pain, palpitations, SOB, syncope, or sudden changes in mental status. - Do not change or discontinue current prescriptions without first consulting health care provider Assessment & Plan (05/02/2024 11:07 PM EDT): Maintenance: BMP: ordered today Lipid Panel: ordered today ASCVD Risk: Calculate pending updated labs -c/w amlodipine 10mg daily I added today hydrochlorothiazide 12.5mg daily - Aerobic exercise to reduce BP. Initial goal of 30 min walk 3-5x/week. Increase as tolerated. - low-sodium diet (goal: <2g/day) and heart healthy diet such as DASH to reduce BP and prevent ASCVD. - Home BP monitoring 1-2 x day with goal of <140/90. - Seek immediate medical attention for chest pain, palpitations, SOB, syncope, or sudden changes in mental status. - Do not change or discontinue current prescriptions without first consulting health care provider Assessment & Plan (01/25/2024 4:31 PM EST): Maintenance: BMP: ordered today Lipid Panel: ordered today ASCVD Risk: Calculate pending updated labs - Aerobic exercise to reduce BP. Initial goal of 30 min walk 3-5x/week. Increase as tolerated. - low-sodium diet (goal: <2g/day) and heart healthy diet such as DASH to reduce BP and prevent ASCVD. - Home BP monitoring 1-2 x day with goal of <140/90. - Seek immediate medical attention for chest pain, palpitations, SOB, syncope, or sudden changes in mental status. - Do not change or discontinue current prescriptions without first consulting health care provider Encounters Date Type Department Care Team Description 04/14/2025 9:30 AM EDT Office Visit [facility] [address] [place] [phone] Constanza Barahona MD SLE (systemic lupus erythematosus related syndrome) ([facility]) (Primary Dx); Primary hypertension; Benign paroxysmal vertigo of both ears; Hypokalemia; Encounter for screening mammogram for malignant neoplasm of breast; Encounter for preventive care; Prediabetes; Polyarthralgia; Encounter for immunization 04/14/2025 Travel 04/13/2025 Telephone [facility] [address] [place] [address] Constanza Barahona MD chart prep 04/13/2025 Refill [facility] [address] [place] [address] Constanza Barahona MD Primary hypertension; Polyarthralgia; Gastroesophageal reflux disease, unspecified whether esophagitis present; Benign hypertension 04/13/2025 Refill [facility] [address] [place] [address] Anne Byrd MD 04/06/2025 Patient Outreach [facility] [address] [place] [address] Constanza Barahona MD Pre-visit Planning (SDOH screening negative and tobacco screening negative) 03/18/2025 2:30 PM EDT Office Visit [facility] [address] [place] [address] Kat-Gomez, Alis, DDS Fracture of removable partial denture (Primary Dx) 03/17/2025 8:30 AM EDT Office Visit [facility] [address] [place] [address] Kat-Gomez, Alis, DDS Fracture of removable partial denture (Primary Dx) 03/14/2025 Orders Only GENERIC EXTERNAL DATA DEPARTMENT Provider, Generic External Data 03/12/2025 3:30 PM EDT Office Visit [facility] [address] [place] [address] Kat-Gomez, Alis, DDS Fracture of removable partial denture (Primary Dx) 02/24/2025 Refill [facility] [address] [place] [address] Constanza Barahona MD Polyarthralgia; Benign hypertension; Gastroesophageal reflux disease, unspecified whether esophagitis present from Last 3 Months Immunizations Immunization Administration Dates Next Due Influenza injectable quadriv alent IIV4 with preservative 10/04/2016,09/03/2015 Influenza injectable quadrivalent preservative f ree 10/09/2014 Influenza, IIV3, injectable 08/09/2010 Pneumococcal Conjugate PCV 20 04/14/2025 TD (adult), 2 Lf tetanus tox oid, preservative free, adsorbed 01/08/2009 Social History Tobacco Use Types Packs/Day Years Used Date Smoking Tobacco: Never Passive Smoke Exposure: Never Smokeless Tobacco: Never Tobacco Cessation:Counseling Given: Not Answered Alcohol Use Standard Drinks/Week Comments Never 0 [...] Orientation Straight 09/25/2022 10 :19 AM EDT Last Filed Vital Signs Vital Sign Reading Time Taken Comments Blood Pressure 143/80 04/14/2025 9:41 AM EDT Pulse 98 04/14/2025 9:41 AM EDT Temperature 35.3 ??C (95.6 ??F) 04/14/2025 9:41 AM ED T Respiratory Rate 20 04/14/2025 9:41 AM EDT Oxygen Saturation 98% 06/06/2024 3:15 PM EDT Inhaled Oxygen Concentration - - Weight 71.4 kg (157 lb 6.4 oz) 04/14/2025 9:41 A M EDT Height 157.5 cm (5' 2 ) 04/14/2025 9:41 AM EDT Body Mass Index 28.79 04/14/2025 9:41 AM EDT Plan of Treatment Upcoming Encounters Date Type Department Care Team (Late st Contact Info) Description 06/22/2025 2:45 PM EDT Procedure Visit [facility] [address] [place] [address] Constanza Barahona MD [address] [place] [address] 06/23/2025 8:00 AM EDT Office Visit [facility] [address] [place] [address] Sydnie, Nidia [address] [place] [address] Health Maintenance Due Date Last Done Comments CT Colonography 1964 FIT DNA/Cologuard 1964 FIT 1964 FOBT 1964 HIV Screening 1964 Sigmoidoscopy 1964 Alcohol/Substance Use Screening 1976 Hepatitis C Screening 1982 Pap Smear 1985 Cervical Cancer Screening 1994 HPV/Cotest 1994 DTaP/Tdap/Td Vaccines (1 - Tdap) 01/09/2009 01/08/2009 Zoster Vaccines (1 of 2) 2014 Dental Oral Exam 05/09/2018 11/07/2017, , 07/24/2016, Additional history exists Dental Prophylaxis 05/09/2018 11/07/2017, 0 03/14/2017, 07/24/2016, Additional history exists Dental X-Ray: Bitewings 04/26/2019 04/25/20 18, 03/14/2017, 07/24/2016, Additional history exists Dental X-Ray: Full Mouth 03/15/2020 03/14/2017, 02/25 Mammogram 09/20/2023 09/20/2022, 08/27, 09/20/2022 COVID-19 Vaccine ( season) 2024 06/12/2022, 04/06/2021, 03/10/2021 Influenza Vaccine (#1) 2024 6, 09/03/2015, 10/09/2014, Additional history exists RSV Patients and Patients Aged 60 years or older (1 - Risk 60-74 years 1-dose series) 2024 Colonoscopy 11/30/2025 11/30/2015 Colorectal Cancer Screening 11/30/2025 SDOH Screening 04/06/2026 04/06/2025 Depression Screening 04/14/2026 04/14/2025, 04/14/20 Diabetes: Hemoglobin A1C 04/14/2026 025, 05/02/2024, 06/08/2022 Disability Screening 04/14/2026 04/14/2025 Tobacco Screening 04/14/2026 04/14/2025 Lipid Panel 05/02/2029 05/02/2024, 06/08/2022 Pneumococcal Vaccine: 50+ Years Completed 04/14/2025 HIB Vaccines Aged Out No longer eligi ble based on patient's age to complete this topic HPV Vaccines Aged Out No longer eligi ble based on patient's age to complete this topic Hepatitis A Vaccines Aged Out No long er eligible based on patient's age to complete this topic Hepatitis B Vaccines Aged Out No long er eligible based on patient's age to complete this topic IPV Vaccines Aged Out No longer eligi ble based on patient's age to complete this topic Meningococcal B Vaccine Aged Out No l onger eligible based on patient's age to complete this topic Meningococcal Vaccine Aged Out No xiang scout eligible based on patient's age to complete this topic RSV under 20 months Aged Out No longe r eligible based on patient's age to complete this topic Rotavirus Vaccines Aged Out No longer eligible based on patient's age to complete this topic Procedures Procedure Name Priority Date/Time Associated Diagnosis Comments POCT GLYCATED HEMOGLOBIN, TOTAL Routine 04/14/2025 9:47 AM EDT Prediabetes POCT GLUCOSE Routine 04/14/2025 9:47 AM EDT Prediabetes CASE PRESENTATION, DETAILED AND EXTENSIVE TREATMENT PLANNING Routine 03/18/2025 2:30 PM EDT Fracture of removable partial denture 9 ADD TOOTH TO EXISTING PARTIAL DENTURE Routine 03/18/2025 2:30 PM EDT Fracture of removable partial denture NO CHARGE PROCEDURE Routine 03/17/2025 8 :30 AM EDT URINALYSIS, COMPLETE, WITH REFLEX TO CULTURE Routine 03/14/2025 8:03 PM EDT CULTURE, URINE, ROUTINE Routine 03/14/2025 8:03 PM EDT HIGH SENSITIVITY TROPONIN I Routine 03/14/2025 6:21 PM EDT MAGNESIUM Routine 03/14/2025 6:21 PM EDT BASIC METABOLIC PANEL Routine 03/14/2025 6:21 PM EDT HEPATIC FUNCTION PANEL Routine 03/14/2025 6:21 PM EDT CBC WITH AUTO DIFFERENTIAL Routine 03/14/2025 6:21 PM EDT SARS COV2/INFLUENZA A/B AND RSV RNA QL NAAT Routine 03/14/2025 6:21 PM EDT NO CHARGE PROCEDURE Routine 03/12/2025 3 :30 PM EDT Fracture of removable partial denture LIPID PANEL, STANDARD Routine 05/02/2024 3:08 PM EDT Primary hypertension MAMMOGRAM GENERIC Routine 09/20/2022 2:4 2 PM EDT BITEWING - SINGLE RADIOGRAPHIC IMAGE Routine 04/25/2018 12:00 AM EDT PROPHYLAXIS - ADULT Routine 11/07/2017 1 2:00 AM EST PERIODIC ORAL EVALUATION - ESTABLISHED PATIENT Routine 11/07/2017 12:00 AM EST INTRAORAL - COMPLETE SERIES OF RADIOGRAPHIC IMAGES Routine 03/14/2017 12:00 AM EDT HM COLONOSCOPY Routine 11/30/2015 from Last 3 Months or Most Recently Relevant to Health Maintenance Results * POCT HGB A1C (04/14/2025 9:47 AM EDT) Hemoglobin A1C 5.7 4.0 - 6.0 % QC Media Lot # [id number] Lot# Expiration Date Blood 04/14/2025 9:4 7 AM EDT us Constanza Hannah MD POINT OF CARE TEST EN TER/EDIT ORDERABLES Final Result * POCT Glucose (04/14/2025 9:47 AM EDT) Glucose Blood, POC 121 60 - 200 mg/dL QC Media Lot # [id number] Lot# Expiration Date Blood Capillary blood specimen / Unknown 04/14/2025 9:47 AM EDT us Constanza Hannah MD POINT OF CARE TEST EN TER/EDIT ORDERABLES Final Result * (ABNORMAL) Urinalysis, Complete, with Reflex to Culture (03/14/2025 8:03 PM EDT) Color Urine Yellow [facility] Appearance Urine Clear [facility] PH 6.5 5.0 - 9.0 [facility] Glucose Urine UA Negative Negative mg/dL [facility] Urine Blood Negative Negative [facility] Specific [place] - Urine 1.010 1.005 - 1.025 [facility] Urine Protein Negative Neg-Trace mg/dL [facility] Urine Ketones Negative Negative mg/dL [facility] Nitrite Urine Negative Negative [facility] Leukocyte Esterase Urine Small (1+)(A) Negative [facility] RBC Urine 0-2 0 - 2 /HPF [facility] Urine WBC 0-5 0 - 5 /HPF [facility] Urine Squamous Epithelial Cell 0-2 0 - 2 /HPF [facility] Urine Bacteria None Seen None Seen [facility] Hyaline Casts, Urine 0-2 0 - 2 /LPF [facility] 03/14/2025 8:03 PM EDT 03/14/2025 8:05 PM EDT Narrative [facility] - 03/14/2025 8:21 PM EDT Urine, Clean Catch Generic External Data Provider LAB URINE ORDERAB LES Final Result Performing Organization Address [facility]/ZIP Co de Phone Number [facility] [address] [place] [phone] * Culture, Urine, Routine (03/14/2025 8:03 PM EDT) Urine Urine specimen obtained by clean catch procedure / Unknown 03/14/2025 8:03 PM EDT 03/14/2025 8:22 PM EDT Comment:UACC Narrative [facility] - 03/16/2025 11:48 AM EDT Urine Culture Report Result Urine Culture < 10,000 cfu/ml Specimen Source: Urine clean catch Generic External Data Provider LAB MICROBIOLOGY - GENERAL ORDERABLES Final Result Performing Organization Address [facility] [[email or web address]] Co de Phone Number [facility] [address] [place] [phone] * High Sensitivity Troponin I (03/14/2025 6:21 PM EDT) TROPONIN I HIGH SENSITIVITY <2.7 <3.5 - 17.0 ng/L [facility] Comment:The Stephens high sens itivity Troponin-I results should beused in conjunction with other diagnostic information suchas ECG, clinical observations and information, and patientsymptoms to aid in the diagnosis of [place]. 03/14/2025 6:21 PM EDT 03/14/2025 6:24 PM EDT Generic External Data Provider LAB BLOOD ORDERAB LES Final Result Performing Organization Address [facility] [[email or web address]] Co de Phone Number [facility] [address] [place] [phone] * SARS-CoV-2 RNA, Influenza A/B, and RSV RNA, Ql NAAT (03/14/2025 6:21 PM EDT) [facility] Influenza A PCR NEGATIVE Negative [facility] Influenza B PCR NEGATIVE Negative [facility] Resp Syncy Virus RNA Qual PCR NEGATIVE Negative [facility] SARS COV2 PCR NEGATIVE Negative [facility] Comment:All test results mus t be correlated with clinical findings.Negative results do not preclude SARS-CoV2, influenza Avirus, influenza B virus and/or RSV infectionand should not be used as the sole basis for treatment orother patient management decisions. Negative results must becombined with clinical observations, patient history, andepidemiological information.This test has not been evaluated for monitoring treatment ofinfection.This test has been authorized by the FDA under an EmergencyUse Authorization (EUA) for use by authorized laboratories.Testing performed on the [employer] GeneXpert utilizingreal-time RT-PCR.All SARS CoV2 and positive influenza A/B results arereported to [facility]. 03/14/2025 6:21 PM EDT 03/14/2025 6:24 PM EDT Generic External Data Provider LAB MICROBIOLOGY - GENERAL ORDERABLES Final Result Performing Organization Address [facility]/ZIP Co de Phone Number [facility] [address] [place] [phone] * (ABNORMAL) CBC auto differential (03/14/2025 6:21 PM EDT) [facility] White Blood Count 8.6 4.8 - 10.8 X10*3/uL [facility] Red Blood Count 4.21 4.20 - 5.50 X10*6/uL [facility] Hemoglobin 12.6 12.0 - 16.0 g/dl [facility] Hematocrit 36.5(L) 37.0 - 47.0 % [facility] Mean Corpuscular Volume 86.7 80.0 - 98.0 fL [facility] Mean Corpuscular Hemoglobin 29.9 27.0 - 33.0 pg [facility] Mean Corpuscular HGB Conc 34.5 31.0 - 35.0 g/dl [facility] Red Cell Distribution Width 14.0 11.0 - 16.0 % [facility] Platelet Count 312 160 - 400 X10*3/uL [facility] Mean Platelet Volume 8.7(L) 9.4 - 12.3 fL [facility] Neutrophils Percent Auto 54.1 45 - 73 % [facility] Imm Gran Pct Auto 0.1 0.0 - 0.4 % [facility] Lymphocytes Percent Auto 38.4 20 - 40 % [facility] Monocytes Percent Auto 6.5 2 - 11 % [facility] Eosinophils Percent Auto 0.6 0 - 4 % [facility] Basophils Percent Auto 0.3 0 - 2 % [facility] NRBC Pct Auto 0.0 0.0 - 0.2 /100WBC [facility] Neutrophils Absolute Auto 4.7 2.0 - 8.3 x10*3/uL [facility] Imm Gran Abs Auto 0.01 0.00 - 0.03 X10*3/uL [facility] Lymphocytes Absolute Auto 3.3 1.2 - 4.9 X10*3/uL [facility] Monocytes Absolute Auto 0.6 0.1 - 1.2 X10*3/uL [facility] Eosinophils Absolute Auto 0.1 0.0 - 0.4 X10*3/uL [facility] Basophils Absolute Auto 0.0 0.0 - 0.2 X10*3/uL [facility] NRBC Abs Auto 0.000 0.0 - 0.012 X10*3/uL [facility] 03/14/2025 6:21 PM EDT 03/14/2025 6:24 PM EDT Generic External Data Provider LAB BLOOD ORDERAB LES Final Result Performing Organization Address City/[facility]/ZIP Co de Phone Number [facility] [address] [place] [phone] * Magnesium (03/14/2025 6:21 PM EDT) [facility] Magnesium 2.1 1.6 - 2.6 mg/dL [facility] 03/14/2025 6:21 PM EDT 03/14/2025 6:24 PM EDT Generic External Data Provider LAB BLOOD ORDERAB LES Final Result Performing Organization Address [facility] de Phone Number [facility] [address] [place] [phone] * Hepatic Function Panel (03/14/2025 6:21 PM EDT) [facility] Bilirubin, Total 0.4 0.0 - 1.0 mg/dL [facility] Bilirubin, Direct 0.1 0.0 - 0.5 mg/dL [facility] Aspartate Amino Transferase 24 5 - 31 U/L [facility] Alanine Aminotransferase 14 0 - 31 U/L [facility] Total Protein 6.5 6.5 - 8.0 g/dL [facility] Albumin Level 3.7 3.5 - 5.0 g/dL [facility] Alkaline Phosphatase 61 39 - 117 U/L [facility] 03/14/2025 6:21 PM EDT 03/14/2025 6:24 PM EDT Generic External Data Provider LAB BLOOD ORDERAB LES Final Result Performing Organization Address [facility] [[email or web address]] Co de Phone Number [facility] [address] [place] [phone] * (ABNORMAL) Basic Metabolic Panel (03/14/2025 6:21 PM EDT) Sodium 138 135 - 145 mmol/L [facility] Potassium 3.1(L) 3.3 - 5.1 mmol/L [facility] Chloride 103 96 - 108 mmol/L [facility] Carbon Dioxide 26 22 - 29 mmol/L [facility] Anion Gap 12 12 - 20 [facility] Urea Nitrogen (BUN) 18(H) 9 - 16 mg/dL [facility] Creatinine, Serum 0.66 0.5 - 1.4 mg/dL [facility] Creatinine Clr Calc Pharmacy 82.3 [facility] Comment:Provided height and weight: 157.48 cm,68.6 kg.eGFR (calculated from the MDRD study equation) and eCrCl(calculated from the Cockcroft-Gault equation) are based ondifferent parameters and may not yield comparable results.If eCrCl result is absurd, please check patient'sheight/weight. Estimated Glomerular Filt Rate >60 [facility] Comment:Chronic Kidney Disea se: Estimated GFR < 60 mL/min/[id number] Kidney Disease: Estimated GFR < 15 mL/min/1.73m2 Glucose 95 60 - 115 mg/dL [facility] Calcium 9.1 8.4 - 10.2 mg/dL [facility] 03/14/2025 6:21 PM EDT 03/14/2025 6:24 PM EDT us Generic External Data Provider LAB BLOOD ORDERAB LES Final Result [facility] [address] [place] [phone] * (ABNORMAL) Lipid Panel, Standard (05/02/2024 3:08 PM EDT) Triglycerides 119 <150 mg/dL [facility] Comment:Desirable Triglyceri de: less than 150 mg/dLBorderline High Triglyceride 150-199 mg/dLHigh Triglyceride: 200-499 mg/dLVery High Triglyceride: greater than or equal to 5OO mg/dL Cholesterol 228(H) <200 mg/dL [facility] Comment:Desirable Cholestero l: less than 200 mg/dLBorderline High Cholesterol: 200-239 mg/dLHigh Cholesterol: greater than 239 mg/dL LDL Cholesterol Calculated 146(H) <100 mg/dL [facility] Comment:Desirable LDL: less than 100 mg/dLNear Optimal/Above Optimal LDL: 110- 129 mg/dLBorderline High LDL: 130-159 mg/dLHigh LDL: 160-189 mg/dLVery High LDL: greater than or equal to 190 mg/dL HDL Cholesterol 59 >40 mg/dL [facility] Comment:Desirable HDL: great er than 40 mg/dL Note: This HDL assay may give artificially low results in patients with liver disease. Blood Venous blood specimen / Unknown 05/02/2024 3:08 PM EDT 05/02/2024 3:58 PM EDT Constanza Hannah MD LAB BLOOD ORDERABLES Final Result Performing Organization Address City/State/[facility] [[email or web address]] Co de Phone Number [facility] [address] [place] [phone] * Mammography Report 1 (09/20/2022 2:42 PM EDT) Anatomical Region Laterality Modality Breast Bilateral Mammography 09/20/2022 2:42 PM EDT Narrative 09/22/2022 9:53 AM EDT Refer to the Notes tab for result details [facility] Procedure: Mammography Report 1 Procedure Note Provider, MD Gloria - 02/18/2023 Refer to the Notes tab for result details [facility] Procedure: Mammography Report 1 Constanza Hannah MD IMG BI PROCEDURES Fin al Result * Hm Colonoscopy (11/30/2015) Historical Provider HEALTH MAINTENANCE Final Result from Last 3 Months or Most Recently Relevant to Health Maintenance Insurance [place] [employer] [facility] MEDICAID LIMITED ADULT DENTAL - N FULL (MEDICAID) Care Teams Tool Operator Relationship Specialty Start Date End Date Constanza Barahnoa MD [address] [place] [id number] PCP - General Family Medicine 08/07/18
[2025-04-14 11:59] LABS: Basophils Percent Auto 0.5 % (0-2); Eosinophils Absolute Auto 0.2 X10*3/uL (0.0-0.4); Hematocrit 37.2 % (37.0-47.0); Hemoglobin 12.5 g/dl (12.0-16.0); Imm Gran Abs Auto 0.02 X10*3/uL (0.00-0.03); Imm Gran Pct Auto 0.3 % (0.0-0.4); Lymphocytes Absolute Auto 2.4 X10*3/uL (1.2-4.9); Lymphocytes Percent Auto 35.9 % (20-40); Mean Corpuscular HGB Conc 33.6 g/dl (31.0-35.0); Mean Corpuscular Hemoglobin 29.7 pg (27.0-33.0); Mean Corpuscular Volume 88.4 fL (80.0-98.0); Mean Platelet Volume 8.9 fL (9.4-12.3); Monocytes Absolute Auto 0.5 X10*3/uL (0.1-1.2); Monocytes Percent Auto 7.1 % (2-11); Neutrophils Absolute Auto 3.5 x10*3/uL (2.0-8.3); Neutrophils Percent Auto 53.2 % (45-73); Platelet Count 332 X10*3/uL (160-400); Red Blood Count 4.21 X10*6/uL (4.20-5.50); Red Cell Distribution Width 14.1 % (11.0-16.0); White Blood Count 6.6 X10*3/uL (4.8-10.8)
[2025-04-14 12:50] LABS: Alanine Aminotransferase 14 U/L (0-31); Albumin Level 3.8 g/dL (3.5-5.0); Alkaline Phosphatase 69 U/L (39-117); Anion Gap 9 (12-20); Aspartate Amino Transferase 18 U/L (5-31); Bilirubin Total 0.3 mg/dL (0.0-1.0); Blood Urea Nitrogen 13 mg/dL (9-16); Calcium 8.9 mg/dL (8.4-10.2); Carbon Dioxide 30 mmol/L (22-29); Chloride 104 mmol/L (96-108); Cholesterol 255 mg/dL (<200); Estimated Glomerular Filt Rate > 60; Glucose Random 87 mg/dL (60-115); HDL Cholesterol 66 mg/dL (>40); LDL Cholesterol Calculated 174 mg/dL (<100); Potassium 3.9 mmol/L (3.3-5.1); Sodium 139 mmol/L (135-145); TSH reflex Free T4 1.45 uIU/mL (0.32-4.0); Total Protein 6.9 g/dL (6.5-8.0); Triglycerides 75 mg/dL (<150); Vitamin D 25-OH Total 35.5 ng/mL (>30)
[2025-04-15 03:45] LABS: HIV AB/AG Nonreactive (Nonreactive); HIV Num 1 0.06 S/CO (0.00-0.99); ~HepC Num1 0.27 S/CO (0.00-0.79); ~Hepatitis C Antibody Nonreactive (Nonreactive)
== END 2025-04-14 10:39 | disposition home or self-care (01) ==
LOC: HO.HHCL 10:38
PROVIDERS: Visit Provider Internal Medicine
DX: Z00.00 Encounter for general adult medical examination without abnormal findings (principal); Z11.4 Encounter for screening for human immunodeficiency virus [HIV]; E87.6 Hypokalemia
CPT/HCPCS: 36415; 80053; 80061; 82306; 84443; 85025; 86803; 87389